=== PATIENT | female | born 1950 | race Caucasian/White ===

== ENCOUNTER 2018-03-31 10:32 | Emergency (ER) | payer BC ==
--- NOTE | 2018-03-31 10:48 | EDM.PDOC ---
ED HPI GENERAL MEDICAL PROBLEM - General Chief Complaint: Lower Extremity Injury/Pain Stated Complaint: LEFT KNEE PAIN Time Seen by Provider: 03/31/18 10:40 Source of Information: Reports: Patient History Limitations: Reports: No Limitations - History of Present Illness INITIAL COMMENTS - FREE TEXT/NARRATIVE: HISTORY AND PHYSICAL: History of present illness: Patient is a 67-year-old female who presents to the emergency room with complaints of left knee pain. She states approximately 3 weeks ago she fell landing on her knee which caused pain. Past 3 weeks she has been doing over the counter medication and supportive care measures which have not seemed to alleviate her discomfort. She has been able to ambulate Review of systems: As per history of present illness and below otherwise all systems reviewed and negative. Past medical history: As per history of present illness and as reviewed below otherwise noncontributory. Surgical history: As per history of present illness and as reviewed below otherwise noncontributory. Social history: No reported history of drug or alcohol abuse. Family history: As per history of present illness and as reviewed below otherwise noncontributory. Physical exam: General: HEENT: Atraumatic, normocephalic, pupils equal and reactive bilaterally, negative for conjunctival pallor or scleral icterus, mucous membranes moist, throat clear, neck supple, nontender, trachea midline. No drooling or trismus noted. No meningeal signs Lungs: Clear to auscultation, breath sounds equal bilaterally, chest nontender. Heart: S1S2, regular rate and rhythm without overt murmur Abdomen: Soft, nondistended, nontender. Negative for masses or hepatosplenomegaly. Negative for costovertebral tenderness. Pelvis: Stable nontender. Genitourinary: Deferred. Rectal: Deferred. Skin: Intact, warm, dry. No lesions or rashes noted. Extremities: Moves all extremities per self. negative for cords or calf pain. Neurovascular unremarkable. Neuro: Awake, alert, oriented. Cranial nerves II through XII unremarkable. Cerebellum unremarkable. Motor and sensory unremarkable throughout. Exam nonfocal. Notes: X-ray shows no acute abnormality, dislocation or fracture area and mild degenerative changes are noted without acute findings. We'll place patient in a knee immobilizer and provided with crutches. The limitations of x-ray through the emergency room. Encouraged her to follow-up with the orthopedic provider as she may need further imaging such as an MRI as there could be ligament or tendon involvement. She voices understanding and is agreeable to plan of care. She denies any further questions at this time. Diagnostics: Xray Therapeutics: Knee immobilizer, Crutches Impression: Knee Injury, Left Plan: 1. Rest, ice, and elevate the affected extremity. Wear the knee immobilizer and crutches until you follow up with orthopedics. 2. Voltaren as needed for pain. Do not take any additional NSAID's will taken this medication. 3. Follow up with orthopedics within the next few days. Return to the ED as needed as discussed. Definitive disposition and diagnosis as appropriate pending reevaluation and review of above. Duration: Week(s): Location: Reports: Lower Extremity, Left Left Knee Pain Score (Numeric/FACES): 10 - Related Data Allergies Allergy/AdvReac Type Severity Reaction Status Date / Time fentanyl Allergy Seizure Verified 03/31/18 10:52 haloperidol [From Haldol] Allergy seizures Verified 03/31/18 10:52 haloperidol lactate Allergy seizures Verified 03/31/18 10:52 [From Haldol] Home Meds: Home Meds Amitriptyline [Elavil] 75 mg PO BEDTIME 03/11/14 [History] ClonazePAM [KlonoPIN] 1 mg PO BID 03/11/14 [History] LORazepam 0.5 mg PO DAILY 03/11/14 [History] Propranolol [Inderal] 40 mg PO BID 03/11/14 [History] Venlafaxine [Effexor XR 24 Hr] 75 mg PO DAILY 03/11/14 [History] busPIRone [Buspar] 15 mg PO TID 03/11/14 [History] Past Medical History - Past Surgical History Other Cardiovascular Surgeries/Procedures: stent Social & Family History - Tobacco Use Smoking Status *Q: Never Smoker Used Tobacco, but Quit: Yes Month/Year Tobacco Last Used: when smoked...1 pack/ 2week period. Quit > 1 yr ago Second Hand Smoke Exposure: No - Alcohol Use Days Per Week of Alcohol Use: 0 - Recreational Drug Use Recreational Drug Use: No Drug Use in Last 12 Months: No Review of Systems - Review of Systems Review Of Systems: ROS reveals no pertinent complaints other than HPI. ED EXAM, GENERAL - Physical Exam Exam: See Below (See dictation) Course - Vital Signs Last Recorded V/S: Last Vital Signs Temp 96.6 F 03/31/18 10:47 Pulse 82 03/31/18 10:47 Resp 18 03/31/18 10:47 BP 102/58 L 03/31/18 10:47 Pulse Ox 93 L 03/31/18 10:47 Departure - Departure Time of Disposition: 11:30 Disposition: Home, Self-Care 01 Clinical Impression: Left knee injury Qualifiers: Encounter type: initial encounter Qualified Code(s): S89.92XA - Unspecified injury of left lower leg, initial encounter - Discharge Information Instructions: Knee Sprain, Adult, [id number]-pm-[facility] Referrals: PCP,None [Primary Care Provider] - Forms: ED Department Discharge Additional Instructions: The following information is given to patients seen in the emergency department who are being discharged to home. This information is to outline your options for follow-up care. We provide all patients seen in our emergency department with a follow-up referral. The need for follow-up, as well as the timing and circumstances, are variable depending upon the specifics of your emergency department visit. If you don't have a primary care physician on staff, we will provide you with a referral. We always advise you to contact your personal physician following an emergency department visit to inform them of the circumstance of the visit and for follow-up with them and/or the need for any referrals to a consulting specialist. The emergency department will also refer you to a specialist when appropriate. This referral assures that you have the opportunity for follow-up care with a specialist. All of these measure are taken in an effort to provide you with optimal care, which includes your follow-up. Under all circumstances we always encourage you to contact your private physician who remains a resource for coordinating your care. When calling for follow-up care, please make the office aware that this follow-up is from your recent emergency room visit. If for any reason you are refused follow-up, please contact the [facility] Emergency Department at and asked to speak to the emergency department charge nurse. [facility] Primary Care [address] [place] [id number] [facility] Specialty Care - Orthopedic Clinic Professional Building [address] [place] [address], [address] [place] [address] 1. Rest, ice, and elevate the affected extremity. Wear the knee immobilizer and crutches until you follow up with orthopedics. 2. May use the Voltaren as needed. Do not take any additional NSAID such as ibuprofen or Aleve while taking this medication. Use Tylenol for breakthrough pain. 3. Follow up with orthopedics within the next few days. Return to the ED as needed as discussed.
--- NOTE | 2018-03-31 11:24 | CR ---
EXAMINATION: Left knee HISTORY: Pain COMPARISON: None TECHNIQUE: 3 views FINDINGS: There is no acute osseous abnormality, dislocation, or fracture. Mild joint space narrowing within the medial compartment. No joint effusion or soft tissue swelling. Early osteophyte formation is noted. IMPRESSION: Mild degenerative changes without acute findings.
[2018-03-31] MEDS ORDERED: Ketorolac 60 MG/2 ML SDV IM ONE (11:58)
[2018-03-31 12:41] VITALS: BP 113/57
== END 2018-03-31 12:25 | disposition home or self-care (01) ==
LOC: MW.ED 10:32
DX: S89.92XA Unspecified injury of left lower leg, initial encounter (principal); Z88.8 Allergy status to other drugs, medicaments and biological substances; Z79.899 Other long term (current) drug therapy; Z87.891 Personal history of nicotine dependence; W19.XXXA Unspecified fall, initial encounter
CPT/HCPCS: 73562; 96372; 99283; J1885

== ENCOUNTER 2018-05-12 07:46 | Day surgery (SDC) | payer BC ==
[~2018-05-12 07:46] MED LIST: Lactated Ringers 1,000 ML IV SCH; Lidocaine 2% 5 ML SDV ONE; Midazolam 1 MG/ML 2 ML SDV ONE; Propofol 200 MG/20 ML SDV ONE; ceFAZolin/Dextrose,Iso-Osmotic 2 GM/50 ML Duplex Bag IV ONE; fentaNYL 250 MCG/5 ML SDV ONE
[2018-05-12] MEDS ORDERED: ceFAZolin 1 GM in Premix Bag 1 BAG IV SCH (08:00)
[2018-05-12] MEDS ORDERED: Acetaminophen/HYDROcodone 325-5 MG Tab PO PRN (08:00)
[2018-05-12] MEDS ORDERED: Lidocaine 1% 20 ML MDV ONE (08:28)
--- NOTE | 2018-05-12 09:14 | PCM.PREANE ---
Preanesthetic Assessment - Anesthesia/Transfusion/Family Hx Anesthesia History: Prior Anesthesia Without Reaction Family History of Anesthesia Reaction: No Transfusion History: No Prior Transfusion(s) Intubation History: Unknown - Review of Systems General: No Symptoms Pulmonary: No Symptoms Cardiovascular: No Symptoms Gastrointestinal: No Symptoms Neurological: No Symptoms Other: Reports: None - Physical Assessment Height: 1.59 m Weight: 68.039 kg ASA Class: 3 Mental Status: Alert & Oriented x3 Airway Class: Mallampati = 2 Dentition: Reports: Normal Dentition Thyro-Mental Finger Breadths: 3 Mouth Opening Finger Breadths: 3 ROM/Head Extension: Full Lungs: Clear to Auscultation, Normal Respiratory Effort Cardiovascular: Regular Rate, Regular Rhythm - Allergies Allergies/Adverse Reactions: Allergies Allergy/AdvReac Type Severity Reaction Status Date / Time fentanyl Allergy Seizure Verified 05/08/18 14:25 haloperidol [From Haldol] Allergy seizures Verified 05/08/18 14:25 haloperidol lactate Allergy seizures Verified 05/08/18 14:25 [From Haldol] - Blood Blood Available: No - Anesthesia Plan Pre-Op Medication Ordered: None - Acknowledgements Anesthesia Type Planned: General Anesthesia Pt an Appropriate Candidate for the Planned Anesthesia: Yes Alternatives and Risks of Anesthesia Discussed w Pt/Guardian: Yes Pt/Guardian Understands and Agrees with Anesthesia Plan: Yes PreAnesthesia Questionnaire HEENT History: Reports: Other (See Below) Other HEENT History: wears glasses Gastrointestinal History: Reports: GERD Genitourinary History: Reports: UTI, Recurrent Musculoskeletal History: Reports: Other (See Below) Other Musculoskeletal History: left knee pain (DJD) Neurological History: Reports: Cerebral Aneurysms, Migraines, Seizure, Other ( See Below) Other Neuro History: placement of coil for brain aneurysm Psychiatric History: Reports: Anxiety, Bipolar, Depression, OCD, Suicide Attempt - Infectious Disease History Infectious Disease History: Reports: Chicken Pox, Measles, Mumps - Past Surgical History Head Surgeries/Procedures: Reports: Other (See Below) (placement of multiple coils as treatment for intracranial aneurysm) HEENT Surgical History: Reports: Cataract Surgery, Tonsillectomy GI Surgical History: Reports: Appendectomy, Other (See Below) Other GI Surgeries/Procedures: hemorrhoidectomy Female Surgical History: Reports: Hysterectomy, Salpingo-Oophorectomy, Other (See Below) Other Female Surgeries/Procedures: cystocele repair, rectocele repair - SUBSTANCE USE Smoking Status *Q: Never Smoker Recreational Drug Use History: No - HOME MEDS Home Medications: Home Meds Amitriptyline [Elavil] 75 mg PO BEDTIME 03/11/14 [History] ClonazePAM [KlonoPIN] 1 mg PO BID 03/11/14 [History] LORazepam 0.5 mg PO BID 03/11/14 [History] Propranolol [Inderal] 40 mg PO BID 03/11/14 [History] Venlafaxine [Effexor XR 24 Hr] 75 mg PO DAILY 03/11/14 [History] busPIRone [Buspar] 15 mg PO TID 03/11/14 [History] Famotidine [Pepcid] 1 tab PO BEDTIME 05/08/18 [History] - CURRENT (IN HOUSE) MEDS Current Meds: Current Medications Hydrocodone Bitart/Acetaminophen ([place] 325-5 Mg) 1 - 2 tab PO Q4H PRN PRN Reason: Pain Cefazolin Sodium/Dextrose 1 gm (/ Premix) 50 mls @ 100 mls/hr IV ONCALL DAVID Lactated Ringer's (Ringers, Lactated) 1,000 mls @ 100 mls/hr IV ASDIRECTED DAVID Discontinued Medications Cefazolin Sodium/Dextrose (Ancef) Confirm Administered Dose 2 gm IV .STK-MED ONE Stop: 05/12/18 07:22 Fentanyl (Sublimaze) Confirm Administered Dose 250 mcg .ROUTE .STK-MED ONE Stop: 05/12/18 07:24 Lidocaine (Xylocaine-Mpf 2%) Confirm Administered Dose 10 ml .ROUTE .STK-MED ONE Stop: 05/12/18 07:23 Lidocaine HCl (Xylocaine 1%) Confirm Administered Dose 20 ml .ROUTE .STK-MED ONE Stop: 05/12/18 08:29 Midazolam HCl (Versed 1 Mg/Ml) Confirm Administered Dose 2 mg .ROUTE .STK-MED ONE Stop: 05/12/18 07:24 Propofol (Diprivan 20 Ml) Confirm Administered Dose 400 mg .ROUTE .STK-MED ONE Stop: 05/12/18 07:24
--- NOTE | 2018-05-12 10:40 | PCM.OPNOTE ---
- General Post-Op/Procedure Note Date of Surgery/Procedure: 05/12/18 Operative Procedure(s): L knee arthroscopy with PMM Post-Op Diagnosis: DJD L knee, L knee medial meniscus tear Anesthesia Technique: General LMA Primary Surgeon: Kathy Wood Checking Department Supervisor: Marbella Woody in mLs: 5 Condition: Good Free Text/Narrative:: tt=21 min #[id number]
[2018-05-12] MEDS ORDERED: fentaNYL 100 MCG/2 ML SDV IVPUSH PRN (10:47)
--- NOTE | 2018-05-12 11:19 | PCM.POSTAN ---
POST ANESTHESIA ASSESSMENT - MENTAL STATUS Mental Status: Alert, Oriented - RESPIRATORY Respiratory Status: Respiratory Rate WNL, Airway Patent, O2 Saturation Stable - CARDIOVASCULAR CV Status: Pulse Rate WNL, Blood Pressure Stable - GASTROINTESTINAL GI Status: No Symptoms - POST OP HYDRATION Hydration Status: Adequate & Stable
[2018-05-12 12:23] VITALS: BP 115/57
--- NOTE | 2018-05-12 14:02 | OR ---
SURGEON: Kathy Wood MD DATE OF PROCEDURE: 05/12/2018 PREOPERATIVE DIAGNOSIS: Left knee medial meniscus tear. POSTOPERATIVE DIAGNOSES: 1. Left knee medial meniscus tear. 2. Degenerative joint disease of left knee. PROCEDURE: Left knee arthroscopy with partial medial meniscectomy. [employer] LABORER: Marbella Woody RN. ANESTHESIA: General. ESTIMATED BLOOD LOSS: 5 mL. TOURNIQUET TIME: 21 minutes. COMPLICATIONS: None. DVT PROPHYLAXIS: Not indicated. IMPLANTS USED: None. BRIEF HISTORY: Lacie is a 67-year-old female, who has had complaint of progressive right knee pain. An MRI did show a tear of the medial meniscus. Due to her lack of response to conservative treatment, I did recommend surgical intervention. The risks and goals of procedure were discussed with the patient and were documented preoperatively. She agreed to proceed. PROCEDURE IN DETAIL: The patient was properly identified and brought to the operating room. She was transferred from the OR cart and placed on the operating table in supine position. General anesthesia was administered. After adequate anesthesia was obtained, a well-padded tourniquet was applied to the left lower extremity. The left lower extremity was then prepped in standard fashion using ChloraPrep solution. It was then sterilely draped. A time-out was performed to ensure correct site and procedure. Preoperative antibiotics were given. The surgical site had been marked preoperatively. An Esmarch was used to exsanguinate the left lower extremity and the tourniquet was inflated to 250 mmHg. A lateral portal arthrotomy was established. Blunt trocar and cannula were introduced into the suprapatellar pouch. Camera, inflow, and outflow were assembled. No significant synovitis was noted. The patellofemoral joint was visualized. 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 Grade 2 chondromalacia was noted diffusely along the patella. The patella appeared to track centrally. I then extended down the lateral and medial gutter. No loose bodies were identified. I then entered the medial compartment. A medial portal arthrotomy was established. She was found to have extensive degenerative fraying of the medial meniscus. Using a combination of biters and shaver, this was resected back to a stable remnant. She only had a thin rim of meniscus remaining along the posterior aspect. The medial femoral condyle showed diffuse grade 3 chondromalacia with similar findings along the medial tibial plateau. I then entered the notch. Both the ACL and PCL were visualized and probed and found to be intact. Finally, I entered the lateral compartment. The lateral meniscus showed degenerative fraying centrally. No tearing was noted. The meniscus was probed and found to be stable. She did have significant degenerative findings along the medial border of the lateral tibial plateau consistent with grade 3 to grade 4 chondromalacia. Diffuse grade 2 chondromalacia was noted along the lateral femoral condyle. Instruments were then removed from the knee. The portal sites were closed with 3-0 nylon. 1% Lidocaine was injected along the portal tracts. Xeroform gauze was placed over the wound and a bulky dressing was applied. The tourniquet was then deflated. She was awakened from her anesthetic and transferred back to the operating room cart. She was brought to recovery room in stable condition. All needle and sponge counts were correct. OSMAN / OLE /[id number]
== END 2018-05-12 12:15 | disposition home or self-care (01) ==
LOC: MW.SDS 07:46
PROVIDERS: ATTEND Orthopaedic Surgery
DX: S83.242A Other tear of medial meniscus, current injury, left knee, initial encounter (principal); M17.12 Unilateral primary osteoarthritis, left knee; M22.42 Chondromalacia patellae, left knee; K21.9 Gastro-esophageal reflux disease without esophagitis; G43.909 Migraine, unspecified, not intractable, without status migrainosus; R56.9 Unspecified convulsions; F41.9 Anxiety disorder, unspecified; F31.9 Bipolar disorder, unspecified; F42.9 Obsessive-compulsive disorder, unspecified; F17.210 Nicotine dependence, cigarettes, uncomplicated; Z91.5 Personal history of self-harm; Z79.899 Other long term (current) drug therapy; Z88.8 Allergy status to other drugs, medicaments and biological substances; W01.0XXA Fall on same level from slipping, tripping and stumbling without subsequent striking against object, initial encounter
CPT/HCPCS: 29881; A9270; J0690; J2250; J3010; J7120; 88304; J2704

== ENCOUNTER 2019-01-01 14:14 | Emergency (ER) | payer BC ==
--- NOTE | 2019-01-01 15:42 | EDM.PDOC ---
ED HPI GENERAL MEDICAL PROBLEM - General Chief Complaint: Back Pain or Injury Stated Complaint: FELL Time Seen by Provider: 01/01/19 14:16 Source of Information: Reports: Patient History Limitations: Reports: No Limitations - History of Present Illness INITIAL COMMENTS - FREE TEXT/NARRATIVE: HISTORY AND PHYSICAL: History of present illness: Patient is a 68-year-old female who presents to the emergency room with complaints of left gluteus pain. She states she slipped and fell on the ice at approximately 1:30 this afternoon landing on her buttocks. Since that time she has had a large firm area to the left gluteus with new bruising at the site. She denies any urinary or fecal involvement. States that she may have secondarily hit the back of her head but did not think she lost consciousness. She denies any visual change, headache, Review of systems: As per history of present illness and below otherwise all systems reviewed and negative. Past medical history: As per history of present illness and as reviewed below otherwise noncontributory. Surgical history: As per history of present illness and as reviewed below otherwise noncontributory. Social history: See social history for further information Family history: As per history of present illness and as reviewed below otherwise noncontributory. Physical exam: General: Well-developed and well-nourished 68-year-old female. Alert and oriented. Nontoxic appearing and in no acute distress. HEENT: Atraumatic, normocephalic, pupils equal and reactive bilaterally, negative for conjunctival pallor or scleral icterus, mucous membranes moist, TMs normal bilaterally, throat clear, neck supple, nontender, trachea midline. No drooling or trismus noted. No meningeal signs. No hot potato voice noted. Lungs: Clear to auscultation, breath sounds equal bilaterally, chest nontender. Heart: S1S2, regular rate and rhythm without overt murmur Abdomen: Soft, nondistended, nontender. Negative for masses or hepatosplenomegaly. Negative for costovertebral tenderness. Pelvis: Stable nontender. Genitourinary: Deferred. Rectal: Deferred. Skin: Baseball sized hematoma to left mid glute with new bruising. Intact, warm , dry. No lesions or rashes noted. Extremities: Atraumatic, negative for cords or calf pain. Neurovascular unremarkable. Neuro: Awake, alert, oriented. Cranial nerves II through XII unremarkable. Cerebellum unremarkable. Motor and sensory unremarkable throughout. Exam nonfocal. Notes: Potassium and BUN/creatinine are elevated. I did discuss with patient the findings. She would like to be discharged to home. I am going to do an EKG to make sure there are no abnormalities that would indicate she needs to stay. Dr Esparza reviewed the EKG and recommended that the patient have 1 dose of Kayexalate prior to being discharged. Patient voices understanding of these lab abnormalities and will follow up with her primary care provider in the next few days. Encouraged her to increase her oral fluids. We'll give her some indications for pain management as she does have the large hematoma to the left buttock. Signs and symptoms that would prompt her to return to the emergency room were reviewed and discussed. She voices understanding and is agreeable to plan of care. Denies any further questions or concerns at this time. Diagnostics: CT head, CT pelvis, CBC, BMP Therapeutics: IV fluids, Zofran, Morphine Prescription: Batchelor Impression: Hematoma, left buttock Hyperkalemia Head injury Plan: 1. Rest, ice to the area and avoid direct pressure when sitting. He may want to get a doughnut cut-out seat to alleviate the discomfort. 2. Tylenol and/or ibuprofen as needed for pain management. Batchelor for moderate to severe pain. Please reserve this medication for nighttime use. Medication may cause drowsiness a do not take it will driving her needing to be functioning outside of the house. 3. Please follow-up with your primary caregiver on the abnormal labs that we discussed. I would like you to be reevaluated in the next 1-2 days. Return to the ED as needed and as discussed. Definitive disposition and diagnosis as appropriate pending reevaluation and review of above. Right Upper Buttock Pain Score (Numeric/FACES): 10 - Related Data Allergies Allergy/AdvReac Type Severity Reaction Status Date / Time haloperidol [From Haldol] Allergy seizures Verified 01/01/19 14:31 haloperidol lactate Allergy seizures Verified 01/01/19 14:31 [From Haldol] Home Meds: Home Meds Amitriptyline [Elavil] 75 mg PO BEDTIME 03/11/14 [History] ClonazePAM [KlonoPIN] 1 mg PO BID 03/11/14 [History] LORazepam 0.5 mg PO BID 03/11/14 [History] Propranolol [Inderal] 40 mg PO BID 03/11/14 [History] Venlafaxine [Effexor XR] 75 mg PO DAILY 03/11/14 [History] busPIRone [Buspar] 15 mg PO TID 03/11/14 [History] Famotidine [Pepcid] 1 tab PO BEDTIME 05/08/18 [History] Acetaminophen/HYDROcodone [Batchelor 325-5 MG] 1 - 2 tab PO Q4H PRN #80 tablet 05/12 [Rx] Acetaminophen/HYDROcodone [Batchelor 325-5 MG] 1 dose PO Q4H PRN #15 tablet [Rx] Past Medical History HEENT History: Reports: Other (See Below) Other HEENT History: wears glasses Gastrointestinal History: Reports: GERD Genitourinary History: Reports: UTI, Recurrent Musculoskeletal History: Reports: Other (See Below) Other Musculoskeletal History: left knee pain (DJD) Neurological History: Reports: Cerebral Aneurysms, Migraines, Seizure, Other ( See Below) Other Neuro History: placement of coil for brain aneurysm Psychiatric History: Reports: Anxiety, Bipolar, Depression, OCD, Suicide Attempt - Infectious Disease History Infectious Disease History: Reports: Chicken Pox - Past Surgical History Head Surgeries/Procedures: Reports: Other (See Below) HEENT Surgical History: Reports: Cataract Surgery, Tonsillectomy GI Surgical History: Reports: Appendectomy, Other (See Below) Other GI Surgeries/Procedures: hemorrhoidectomy Female Surgical History: Reports: Hysterectomy, Salpingo-Oophorectomy, Other (See Below) Other Female Surgeries/Procedures: cystocele repair, rectocele repair Social & Family History - Family History Family Medical History: Noncontributory - Tobacco Use Smoking Status *Q: Never Smoker - Caffeine Use Caffeine Use: Reports: Coffee - Recreational Drug Use Recreational Drug Use: No ED ROS GENERAL - Review of Systems Review Of Systems: ROS reveals no pertinent complaints other than HPI. ED EXAM,LOWER BACK PAIN/INJURY - Physical Exam Exam: See Below (See dictation) Course - Vital Signs Last Recorded V/S: Last Vital Signs Temp 96.7 F 01/01/19 15:07 Pulse 94 01/01/19 15:07 Resp 18 01/01/19 15:07 BP 140/82 01/01/19 15:07 Pulse Ox 97 02/07/19 15:07 - Orders/Labs/Meds Orders: Active Orders 24 hr Category Date Time Status EKG Documentation Completion [RC] STAT Care 01/01/19 17:58 Active BASIC METABOLIC PANEL,BMP [CHEM] Stat Lab 01/01/19 14:34 Stop Req CBC WITH AUTO DIFF [HEME] Stat Lab 01/01/19 14:34 Stop Req Morphine Med 01/01/19 14:34 Once 4 mg IVPUSH ONETIME ONE Ondansetron [Zofran] Med 01/01/19 14:34 Once 4 mg IVPUSH ONETIME ONE Labs: Laboratory Tests 01/01/19 01/01/19 Range/Units 16:00 16:44 WBC 7.82 (4.0-11.0) K/uL RBC 4.38 (4.30-5.90) M/uL Hgb 13.6 (12.0-16.0) g/dL Hct 40.4 (36.0-46.0) % MCV 92.2 (80.0-98.0) fL MCH 31.1 (27.0-32.0) pg MCHC 33.7 (31.0-37.0) g/dL RDW Std Deviation 48.3 (28.0-62.0) fl RDW Coeff of Shabbir 14 (11.0-15.0) % Plt Count 301 (150-400) K/uL MPV 9.10 (7.40-12.00) fL Neut % (Auto) 71.8 (48.0-80.0) % Lymph % (Auto) 20.2 (16.0-40.0) % Weld % (Auto) 6.6 (0.0-15.0) % Eos % (Auto) 0.9 (0.0-7.0) % Baso % (Auto) 0.5 (0.0-1.5) % Neut # (Auto) 5.6 (1.4-5.7) K/uL Lymph # (Auto) 1.6 (0.6-2.4) K/uL Weld # (Auto) 0.5 (0.0-0.8) K/uL Eos # (Auto) 0.1 (0.0-0.7) K/uL Baso # (Auto) 0.0 (0.0-0.1) K/uL Nucleated RBC % 0.0 /100WBC Nucleated RBCs # 0 K/uL Sodium 143 (136-145) mmol/L Potassium 5.5 H (3.5-5.1) mmol/L Chloride 108 H (98-107) mmol/L Carbon Dioxide 26.4 (21.0-32.0) mmol/L BUN 23 H (7.0-18.0) mg/dL Creatinine 1.4 H (0.6-1.0) mg/dL Est Cr Clr Drug Dosing 32.70 mL/min Estimated GFR (MDRD) 37.6 ml/min Glucose 111 H (74-106) mg/dL Calcium 10.3 H (8.5-10.1) mg/dL Meds: Medications Discontinued Medications Generic Name Dose Route Start Last Admin Trade Name Freq PRN Reason Stop Dose Admin Sodium Chloride 1,000 mls @ 999 mls/hr 01/01/19 16:57 01/01/19 17:33 Normal Saline IV 01/01/19 17:57 999 mls/hr STAT ONE Administration Morphine Sulfate 4 mg 01/01/19 16:13 01/01/19 16:19 Morphine IVPUSH 01/01/19 16:14 4 mg ONETIME ONE Administration Ondansetron HCl 4 mg 01/01/19 16:13 01/01/19 16:19 Zofran IVPUSH 01/01/19 16:14 4 mg ONETIME ONE Administration Sodium Polystyrene Sulfonate 15 gm 01/01/19 18:01 Kayexalate PO 01/01/19 18:02 ONETIME ONE Departure - Departure Time of Disposition: 18:20 Disposition: Home, Self-Care 01 Clinical Impression: Hematoma, Hyperkalemia Head injury Qualifiers: Encounter type: initial encounter Qualified Code(s): S09.90XA - Unspecified injury of head, initial encounter - Discharge Information Prescriptions: Acetaminophen/HYDROcodone [Batchelor 325-5 MG] 1 dose PO Q4H PRN #15 tablet PRN Reason: Pain Instructions: Hyperkalemia, [id number], Head Injury, Adult, [id number], Hematoma, [id number] Referrals: PCP,None [Primary Care Provider] - Forms: ED Department Discharge Additional Instructions: The following information is given to patients seen in the emergency department who are being discharged to home. This information is to outline your options for follow-up care. We provide all patients seen in our emergency department with a follow-up referral. The need for follow-up, as well as the timing and circumstances, are variable depending upon the specifics of your emergency department visit. If you don't have a primary care physician on staff, we will provide you with a referral. We always advise you to contact your personal physician following an emergency department visit to inform them of the circumstance of the visit and for follow-up with them and/or the need for any referrals to a consulting specialist. The emergency department will also refer you to a specialist when appropriate. This referral assures that you have the opportunity for follow-up care with a specialist. All of these measure are taken in an effort to provide you with optimal care, which includes your follow-up. Under all circumstances we always encourage you to contact your private physician who remains a resource for coordinating your care. When calling for follow-up care, please make the office aware that this follow-up is from your recent emergency room visit. If for any reason you are refused follow-up, please contact the [facility] Emergency Department at and asked to speak to the emergency department charge nurse. [facility] [address] [place] [id number] [place] [address] 1. Rest, ice to the area and avoid direct pressure when sitting. He may want to get a doughnut cut-out seat to alleviate the discomfort. 2. Tylenol and/or ibuprofen as needed for pain management. Batchelor for moderate to severe pain. Please reserve this medication for nighttime use. Medication may cause drowsiness a do not take it will driving her needing to be functioning outside of the house. 3. Please follow-up with your primary caregiver on the abnormal labs that we discussed. I would like you to be reevaluated in the next 1-2 days. Return to the ED as needed and as discussed. - My Orders Last 24 Hours: My Active Orders 01/01/19 14:34 BASIC METABOLIC PANEL,BMP [CHEM] Stat CBC WITH AUTO DIFF [HEME] Stat Morphine 4 mg IVPUSH ONETIME ONE Ondansetron [Zofran] 4 mg IVPUSH ONETIME ONE 01/01/19 17:58 EKG Documentation Completion [RC] STAT - Assessment/Plan Last 24 Hours: My Active Orders 01/01/19 14:34 BASIC METABOLIC PANEL,BMP [CHEM] Stat CBC WITH AUTO DIFF [HEME] Stat Morphine 4 mg IVPUSH ONETIME ONE Ondansetron [Zofran] 4 mg IVPUSH ONETIME ONE 01/01/19 17:58 EKG Documentation Completion [RC] STAT
[2019-01-01] MEDS ORDERED: Morphine 4 MG/ML Syringe IVPUSH ONE (16:13)
[2019-01-01] MEDS ORDERED: Ondansetron 4 MG/2 ML SDV IVPUSH ONE (16:13)
[2019-01-01] MEDS ORDERED: Sodium Chloride 0.9% 1,000 ML IV ONE (16:57)
--- NOTE | 2019-01-01 17:52 | CT ---
INDICATION: Fall. TECHNIQUE: Noncontrast axial images through the pelvis with sagittal and coronal reconstructions. COMPARISON: None. FINDINGS: No pelvic or proximal femur fracture. Degenerative changes are noted in the lower lumbar spine and in both hip joints. In the subcutaneous tissues of the left side of the lower back and left upper gluteal region, there is stranding of the subcutaneous fat surrounding the a hyperdense fluid collection which measures 7.8 x 4.8 x 9.4 cm. This likely represents a hematoma. Incidental findings in the lower abdomen and pelvis include postsurgical changes from a hysterectomy and the distal aspect of a presumed shunt in the lower abdomen and pelvis. IMPRESSION: 1. No pelvic fracture. 2. Large contusion and hematoma involving the subcutaneous tissues of the left lower back and upper buttock. Please note that all CT scans at this facility use dose modulation, iterative reconstruction, and/or weight-based dosing when appropriate to reduce radiation dose to as low as reasonably achievable. Dictated by Satya Walls MD @ Jan 01 2019 6:45PM Signed by Dr. Satya Walls @ Jan 01 2019 6:52PM
[2019-01-01] MEDS ORDERED: Sodium Polystyrene Sulfonate 15 GM/60 ML Susp 60 ML Bot PO ONE (18:01)
[2019-01-01 18:35] VITALS: BP 105/79
== END 2019-01-01 18:35 | disposition home or self-care (01) ==
LOC: MW.ED 14:14
DX: S09.90XA Unspecified injury of head, initial encounter (principal); S30.0XXA Contusion of lower back and pelvis, initial encounter; E87.5 Hyperkalemia; Z79.899 Other long term (current) drug therapy; K21.9 Gastro-esophageal reflux disease without esophagitis; Z88.8 Allergy status to other drugs, medicaments and biological substances; W00.0XXA Fall on same level due to ice and snow, initial encounter
CPT/HCPCS: 36415; 72192; 80048; 85025; 93005; 96361; 96374; 96375; 99284; A9270; J2270; J2405; J7040

== ENCOUNTER 2020-03-12 12:41 | Emergency (ER) | payer SELFPAY ==
[2020-03-12 13:05] VITALS: BP 105/50; PULSE 89
--- NOTE | 2020-03-12 13:18 | EDM.PDOC ---
ED HPI GENERAL MEDICAL PROBLEM - General Chief Complaint: Genitourinary Problem Stated Complaint: UTI Time Seen by Provider: 03/12/20 12:47 Source of Information: Reports: Patient History Limitations: Reports: No Limitations - History of Present Illness INITIAL COMMENTS - FREE TEXT/NARRATIVE: 69-year-old female with history of UTI presents with dysuria and urgency. She states she has been having symptoms for about a month but symptoms worsen over the last few days. She has been taking double dose of Azo with no relief. She denies fever, chills, nausea, vomiting, abdominal pain, back pain, vaginal bleeding. She states this feels like her typical urinary tract infection. ROS: A 10-point review of systems, other than pertinent positives and negatives as stated per HPI, is otherwise negative PHYSICAL EXAM General: AOx4, GCS = 15, No distress HEENT: dry mucous membrane Neck: supple, no meningismus, no Kernig or Brudzinski Cardiac: S1S2 RRR Respiratory: CTAB, no crackles or rales, no wheezing Abdomen: Soft, nontender, no rebound or guarding, nondistended, no pulsatile mass. Back: nontender, no CVAT Musculoskeletal: NVI distally, no deformity Neuro: No focal deficits MEDICAL DECISION MAKING: I reviewed the patients past medical records, lab and radiographic findings. I discussed the case with family members. My differential diagnosis included: UTI, cystitis, pyelonephritis. Patient is well -appearing with normal vital signs and nontender exam, she had no CVA tenderness. I do not suspect need for imaging study. Vaginal Pain Score (Numeric/FACES): 10 - Related Data Allergies Allergy/AdvReac Type Severity Reaction Status Date / Time haloperidol [From Haldol] Allergy seizures Verified 03/12/20 13:05 haloperidol lactate Allergy seizures Verified 03/12/20 13:05 [From Haldol] Home Meds: Home Meds cephALEXin [Keflex] 500 mg PO Q8H #21 cap 03/12/20 [Rx] Past Medical History HEENT History: Reports: Cataract, Other (See Below) Other HEENT History: wears glasses Cardiovascular History: Reports: None Respiratory History: Reports: None Gastrointestinal History: Reports: GERD Genitourinary History: Reports: UTI, Recurrent MED AIDE History: Reports: Musculoskeletal History: Reports: Other (See Below) Other Musculoskeletal History: left knee pain (DJD) Neurological History: Reports: Cerebral Aneurysms, Migraines, Seizure, Other ( See Below) Other Neuro History: placement of coil for brain aneurysm Psychiatric History: Reports: Anxiety, Bipolar, Depression, OCD, Suicide Attempt Endocrine/Metabolic History: Reports: None Hematologic History: Reports: None Immunologic History: Reports: None Oncologic (Cancer) History: Reports: None Dermatologic History: Reports: None - Infectious Disease History Infectious Disease History: Reports: None - Past Surgical History Head Surgeries/Procedures: Reports: Other (See Below) HEENT Surgical History: Reports: Cataract Surgery, Tonsillectomy GI Surgical History: Reports: Appendectomy, Other (See Below) Other GI Surgeries/Procedures: hemorrhoidectomy Female Surgical History: Reports: Hysterectomy, Salpingo-Oophorectomy, Other (See Below) Other Female Surgeries/Procedures: cystocele repair, rectocele repair Social & Family History - Family History Family Medical History: Noncontributory - Tobacco Use Smoking Status *Q: Never Smoker - Caffeine Use Caffeine Use: Reports: Coffee - Recreational Drug Use Recreational Drug Use: No ED ROS GENERAL - Review of Systems Review Of Systems: See Below (see dictation) ED EXAM, RENAL/ - Physical Exam Exam: See Below (see dictation) Course - Vital Signs Last Recorded V/S: Last Vital Signs Temp 97.5 F 03/12/20 13:02 Pulse 89 03/12/20 13:02 Resp 18 03/12/20 13:02 BP 105/50 L 03/12/20 13:02 Pulse Ox 94 L 03/12/20 13:02 - Orders/Labs/Meds Labs: Laboratory Tests 03/12/20 Range/Units 13:00 Urine Color ORANGE Urine Appearance SLT CLOUDY Urine pH 6.5 (5.0-8.0) Ur Specific Mcleod 1.020 (1.001-1.035) Urine Protein >=300 H (NEGATIVE) mg/dL Urine Glucose (UA) 250 H (NEGATIVE) mg/dL Urine Ketones 15 H (NEGATIVE) mg/dL Urine Occult Blood TRACE-INTACT H (NEGATIVE) Urine Nitrite POSITIVE H (NEGATIVE) Urine Bilirubin MODERATE H (NEGATIVE) Urine Ictotest NEGATIVE Urine Urobilinogen >=8.0 H (<2.0) EU/dL Ur Leukocyte Esterase MODERATE H (NEGATIVE) U Hyaline Cast (Auto) 3-5 (0-2/LPF) Urine RBC 0-4 (0-2/HPF) Urine WBC 40-50 (0-5/HPF) Ur Epithelial Cells FEW (NONE-FEW) Urine Bacteria 1+ H (NEGATIVE) Urinalysis Comment - Re-Assessments/Exams Free Text/Narrative Re-Assessment/Exam: 03/12/20 13:3 After treatments and a prolonged observation period in the ER, the patient improved clinically and is stable for discharge. I performed a repeat examination and the patient has not demonstrated any new abnormal findings. Patient exhibits normal vital signs and has exhibited a normal gait. I advised the patient to return to the ER for reevaluation if symptoms worsened, and to follow up with their PCP within 2-3 days. Departure - Departure Time of Disposition: 13:33 Disposition: Home, Self-Care 01 Condition: Good Clinical Impression: UTI, Urinary tract infectious disease - Discharge Information Prescriptions: cephALEXin [Keflex] 500 mg PO Q8H #21 cap Instructions: Urinary Tract Infection, Adult, Antibiotic Medicine, Adult Referrals: PCP,None [Primary Care Provider] - Forms: ED Department Discharge Additional Instructions: The following information is given to patients seen in the emergency department who are being discharged to home. This information is to outline your options for follow-up care. We provide all patients seen in our emergency department with a follow-up referral. The need for follow-up, as well as the timing and circumstances, are variable depending upon the specifics of your emergency department visit. If you don't have a primary care physician on staff, we will provide you with a referral. We always advise you to contact your personal physician following an emergency department visit to inform them of the circumstance of the visit and for follow-up with them and/or the need for any referrals to a consulting specialist. The emergency department will also refer you to a specialist when appropriate. This referral assures that you have the opportunity for follow-up care with a specialist. All of these measure are taken in an effort to provide you with optimal care, which includes your follow-up. Under all circumstances we always encourage you to contact your private physician who remains a resource for coordinating your care. When calling for follow-up care, please make the office aware that this follow-up is from your recent emergency room visit. If for any reason you are refused follow-up, please contact the [facility] Emergency Department at and asked to speak to the emergency department charge nurse. Sepsis Event Note - Evaluation Sepsis Screening Result: No Definite Risk - Focused Exam Vital Signs: Vital Signs Temp Pulse Resp BP Pulse Ox 03/12/20 13:02 97.5 F 89 18 105/50 L 94 L Date Exam was Performed: 03/12/20 Time Exam was Performed: 13:33
== END 2020-03-12 13:59 | disposition home or self-care (01) ==
LOC: MW.ED 12:41
DX: N39.0 Urinary tract infection, site not specified (principal); Z88.8 Allergy status to other drugs, medicaments and biological substances
CPT/HCPCS: 81001; 99283

== ENCOUNTER 2021-08-24 10:38 | Inpatient (IN) | payer BC ==
[2021-08-24] MEDS ORDERED: Sodium Chloride 0.9% 1,000 ML IV ONE ×2 (11:08→12:24)
--- NOTE | 2021-08-24 12:07 | CR ---
INDICATION: Fall TECHNIQUE: Single view pelvis COMPARISONS: None available. FINDINGS: Femoral heads are well-seated in the acetabula. There is no displaced fracture, dislocation or acute osseous abnormality. There is moderate degenerative change of the left greater than right hips without evidence of acute osseous abnormality. The soft tissues are unremarkable. IMPRESSION: Moderate degenerative changes of the left greater than right hips without evidence of acute osseous abnormality. Dictated by Elio Araujo MD @ 08/24/2021 12:05:49 PM (Electronically Signed)
[2021-08-24 12:09] LABS: BLOOD UREA NITROGEN,BUN 59 mg/dL (7.0-18.0); CARBON DIOXIDE,CO2 15.2 mmol/L (21.0-32.0); CHLORIDE,CL 109 mmol/L (98-107); GLUCOSE RANDOM 106 mg/dL (74-106); LIPASE 304 U/L (73-393); POTASSIUM,K 4.5 mmol/L (3.5-5.1); SODIUM,NA 138 mmol/L (136-145)
--- NOTE | 2021-08-24 12:09 | CR ---
Indication: Fall Comparison: None available. Technique: Single AP view chest Findings: There is hyperinflation and chronic interstitial change. There is no focal consolidation, effusion, or pneumothorax. The cardiomediastinal silhouette is within normal limits. The bony thorax is grossly intact. Impression: No acute cardiopulmonary abnormality. Dictated by Elio Araujo MD @ 08/24/2021 12:07:02 PM (Electronically Signed)
[2021-08-24 12:26] LABS: CORONAVIRUS COVID-19 NAA NEGATIVE (NEGATIVE); INFLUENZA A NAA NEGATIVE (NEGATIVE); INFLUENZA B NAA NEGATIVE (NEGATIVE); RESPIRATORY SYNCYTIAL VIR NAA NEGATIVE (NEGATIVE)
--- NOTE | 2021-08-24 12:30 | CT ---
INDICATION: Fall with head injury TECHNIQUE: Head CT without contrast. COMPARISON: None. FINDINGS: : Brain parenchyma: Right transfrontal intraventricular catheter tip terminates in the roof of the 3rd ventricle. Bifrontal encephalomalacia. The ventricles are slit-like. 8 mm metallic density in the right cerebellum. No sign of mass, hemorrhage, or midline shift. Skull base and calvarium: The visualized paranasal sinuses and mastoid air cells demonstrate no acute or significant findings. The visualized orbits are grossly unremarkable. No skull fractures. There is intracranial atherosclerosis. IMPRESSION: 1. No acute findings. 2. Right transfrontal intraventricular catheter tip terminates in the roof of the 3rd ventricle. The ventricles are slit-like in size. 3. Metallic density in the right cerebellum likely representing embolization coils. Correlate with clinical history. 4. Bifrontal encephalomalacia. Please note that all CT scans at this facility use dose modulation, iterative reconstruction, and/or weight-based dosing when appropriate to reduce radiation dose to as low as reasonably achievable. Dictated by Yady Salas MD @ 08/24/2021 12:28:15 PM (Electronically Signed)
[2021-08-24] MEDS ORDERED: Piperacillin/Tazobactam 3.375 GM in Sodium Chloride 0.9% 50 ML IV ONE (12:49)
--- NOTE | 2021-08-24 13:12 | CT ---
INDICATION: Leukocytosis with abdominal pain. TECHNIQUE: CT of the abdomen and pelvis with 75 cc Isovue 370 IV contrast. Coronal and sagittal reconstructions. COMPARISON: CT of the abdomen and pelvis 10/08/2014. FINDINGS: Mild diffuse hepatic steatosis. Single tiny low-attenuation lesion in the inferior right hepatic lobe which is likely benign (series 201, image 49). The gallbladder is distended without radiopaque stones or evidence of inflammation. No biliary dilation. The spleen, pancreas, and right adrenal gland are negative. Splenule. Stable small left adrenal nodule which most likely represents a benign adenoma. There is also stable mild nonspecific thickening of the left adrenal gland. Hepatic and portal veins are patent. Moderate left renal cortical atrophy similar to prior exam. Bilateral renal cysts. No hydronephrosis or ureteral dilation. No obstructing urinary calculi. Small amount of air in the bladder. Hysterectomy. There is a 1.8 cm cystic lesion in the right adnexa (series 2, image 139). No abnormality in the left adnexa. Moderate hiatal hernia which has increased in size since prior exam. No bowel dilation. There is wall thickening of the transverse and descending colon compatible with a nonspecific colitis. No pneumatosis. No obvious vascular occlusion identified. The appendix is not identified. No intraperitoneal free air or fluid. Ventriculoperitoneal shunt coursing within the right anterior abdominal wall with tip in the posterior pelvis. No lymphadenopathy. Calcified subcutaneous granulomas in the buttocks bilaterally. Degenerative changes of the spine. Stable atelectasis or scarring in the medial right middle lobe. Minimal left basilar atelectasis. The lung bases are otherwise clear. Mild elevation of the right hemidiaphragm. IMPRESSION: 1. Wall thickening of the transverse and descending colon compatible with a nonspecific colitis. No pneumatosis or obvious vascular occlusion identified to suggest ischemia. 2. Distended gallbladder of uncertain etiology. No radiopaque stones or evidence of gallbladder inflammation. No biliary dilation. Consider further evaluation with ultrasound. 3. Mild diffuse hepatic steatosis. 4. Moderate hiatal hernia which has increased in size since prior exam. 5. 1.8 cm right adnexal cystic lesion. This could be further evaluated with pelvic ultrasound. Please note that all CT scans at this facility use dose modulation, iterative reconstruction, and/or weight-based dosing when appropriate to reduce radiation dose to as low as reasonably achievable. Dictated by Margaret Mina MD @ 08/24/2021 1:10:25 PM (Electronically Signed)
[2021-08-24] MEDS ORDERED: Iopamidol 755 MG/ML 500 ML Multipack Bottle IVPUSH STA (13:18)
[2021-08-24] MEDS ORDERED: Acetaminophen 500 MG Tab PO ONE (13:22)
[2021-08-24] MEDS ORDERED: Caffeine Citrated (for neonates) 60 MG/3 ML PO ONE ×2 (13:33→13:45)
[2021-08-24] MEDS ORDERED: Lactated Ringers 1,000 ML IV ONE (15:12)
[2021-08-24] MEDS ORDERED: Ondansetron 4 MG/2 ML SDV IVPUSH PRN (15:12)
[2021-08-24] MEDS ORDERED: Pantoprazole 40 MG Vial IV SCH (15:12)
--- NOTE | 2021-08-24 15:15 | EDM.PDOC ---
ED HPI GENERAL MEDICAL PROBLEM - General Chief Complaint: General Stated Complaint: WEAKNESS Time Seen by Provider: 08/24/21 10:40 Source of Information: Reports: Patient History Limitations: Reports: No Limitations - History of Present Illness INITIAL COMMENTS - FREE TEXT/NARRATIVE: HISTORY AND PHYSICAL: History of present illness: Patient is a 70-year-old female who presents emergency room today with her for concern of generalized weakness, fatigue, diarrhea, and lower abdominal cramping x2 to 3 days. Patient states that she has had too many numerous episodes of watery diarrhea to count and states that she does feel weak and dehydrated. Patient states that she has been having a hard time with ambulation due to weakness and states that she has fallen several times but denies any injuries. Patient states that she believes she has hit her head but cannot specify any specific fall. Patient states that she does have a history of ruptured cerebral aneurysm in 2000 and does have a shunt in her head secondary to this. Patient states she does have baseline headaches as a result of this and states that she does have a headache today but this is per her base line. Patient states she would typically use some sort of caffeine medication to help with this. Patient states that she has had a decrease in appetite has not been able to drink enough water to keep up with her diarrhea. Patient notes that may be some of her stool was blood-tinged but denies any bacilio blood, or melena. Patient denies fever, chills, chest pain, shortness of breath, or cough. Denies neck stiff ness, change in vision, syncope, or near syncope. Denies nausea, vomiting, or dysuria. Has not noted any blood in urine. Review of systems: As per history of present illness and below otherwise all systems reviewed and negative. Past medical history: As per history of present illness and as reviewed below otherwise noncontributory. Surgical history: As per history of present illness and as reviewed below otherwise noncontributory. Social history: See social history for further information Family history: As per history of present illness and as reviewed below otherwise noncontributory. Physical exam: General: Patient is alert, oriented, and in no acute distress. Patient laying comfortably on exam table. Patient's blood pressure softer at 98/53 with a MAP of 68, otherwise vitally stable and reviewed by me. HEENT: Atraumatic, normocephalic, pupils equal and reactive bilaterally, negative for conjunctival pallor or scleral icterus, mucous membranes severely dry, throat clear, neck supple, nontender, trachea midline. No drooling or trismus noted. No meningeal signs. No hot potato voice noted. Lungs: Clear to auscultation, breath sounds equal bilaterally, chest nontender. Heart: S1S2, regular rate and rhythm without overt murmur Abdomen: Soft, nondistended, mild lower abdominal tenderness without guarding, negative rebound/lazaro. Negative for masses or hepatosplenomegaly. Negative for costovertebral tenderness. Pelvis: Stable nontender. Genitourinary: Deferred. Rectal: Worm Picker at bedside Rebeca Hood RN. No obvious hemorrhoids, masses, lesions, noted. Rectal tone intact. Hemoccult is positive without any bacilio blood or melena Skin: Intact, warm, dry. No lesions or rashes noted. Extremities: Atraumatic, negative for cords or calf pain. Neurovascular unremarkable. Neuro: Awake, alert, oriented. Cranial nerves II through XII unremarkable. Cerebellum unremarkable. Motor and sensory unremarkable throughout. Exam nonfocal. Notes: Patient is a 70-year-old female who presents emergency room today with concern of generalized weakness/fatigue, increase in falls, multiple episodes of watery diarrhea, lower abdominal cramping x2 to 3 days. Upon arrival to the ED, patient's blood pressures are soft at about 98/53 with map of 65-70, otherwise vitally stable on exam. Patient does have dry mucous membranes and Hemoccult positive on exam without bacilio blood / melena. Patient's lower abdomen is mildly tender without guarding and rebound/Lazaro sign are negative. Will establish IV access, initiate fluid bolus, and obtain lab work. We will also obtain abdominal pelvic CT scan. We will also perform head CT, 1 view pelvis, chest x-ray as patient has had multiple falls in the past several days. CBC shows a leukocytosis at 13.13 (lactate within normal limits). Patient is anemic with red blood cells of 3.43, hemoglobin 9.6, and hematocrit 29. Otherwise moderate consistency unremarkable. CMP does show bicarb decreased at 15.2 with a new elevation of creatinine at 4.1 and BUN of 59 suggestive of acute kidney injury. Otherwise, mild derangements of CMP unremarkable. Lipase within normal limits. Troponin negative. Influenza, RSV, COVID-19 negative. CXR shows acute cardiopulmonary finding. Head without contrast shows no acute findings. Right transfrontal intraventricular catheter tip terminates in the roof of the third ventricle. The ventricles are slitlike in size. Metallic density in the right cerebellum likely representing embolism coils. Bifrontal encephalomalacia. Pelvic x-ray shows moderate degenerative changes of the left greater than right hip without evidence of acute osseous abnormality. Abdominal pelvic CT scan shows wall thickening of the transverse and descending colon compatible with nonspecific colitis. No pneumatosis or obvious vascular occlusion identified to suggest ischemia. Distended gallbladder of uncertain etiology. No radiopaque stones or evidence of gallbladder inflammation. No biliary dilation. Mild diffuse hepatic steatosis. Moderate hiatal hernia which is increased in size from prior. 1.8 cm right adnexal cystic lesion. This can be further evaluated with pelvic ultrasound. All incidental findings today of imaging today discussed with patient the importance to have this followed up at a later date with her primary care provider. I did call and speak to the hospitalist on-call, Dr. Pena, and thoroughly discussed patient's case. Will admit inpatient to Dr. Lowery on telemetry. On reevaluation of patient, she consistently has soft blood pressures in the emergency room today but states that she feels much improved with therapeutics. Patient transferred to the floor in stable condition to Dr. Pena's care. Voices understanding and is agreeable to plan of care. Denies any further questions or concerns at this time. Diagnostics: CBC, CMP, Lipase, influenza, RSV, COVID-19, stool studies, lactate, blood cultures x2, head CT, 1 view chest x-ray, pelvic x-ray 1 view, abdominal pelvic CT scan with contrast, RUQ US Therapeutics: NS, Zosyn, Vancomycin, Tylenol, Impression: Colitis Sepsis Hypovolemia/dehydration with acute kidney injury Plan: Admit to inpatient to Dr. Pena on telemetry Definitive disposition and diagnosis as appropriate pending reevaluation and review of above. - Related Data Allergies Allergy/AdvReac Type Severity Reaction Status Date / Time haloperidol [From Haldol] Allergy seizures Verified 08/24/21 16:42 haloperidol lactate Allergy seizures Verified 08/24/21 16:42 [From Haldol] Home Meds: Home Meds Amitriptyline HCl 75 mg PO BEDTIME 08/24/21 [History] ClonazePAM [KlonoPIN] 1 mg PO BEDTIME 08/24/21 [History] DULoxetine [Cymbalta] 30 mg PO DAILY 08/24/21 [History] LORazepam [Ativan] 0.5 mg PO TID 08/24/21 [History] Oxymetazoline HCl [Afrin] 2 spray NS BEDTIME 08/24/21 [History] Propranolol [Inderal] 40 mg PO BID 08/24/21 [History] busPIRone [Buspar] 15 mg PO TID 08/24/21 [History] traZODone 100 mg PO BEDTIME PRN 08/24/21 [History] Past Medical History HEENT History: Reports: Cataract, Other (See Below) Other HEENT History: wears glasses Cardiovascular History: Reports: None Respiratory History: Reports: None Gastrointestinal History: Reports: GERD Genitourinary History: Reports: UTI, 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 History: Reports: Musculoskeletal History: Reports: Other (See Below) Other Musculoskeletal History: left knee pain (DJD) Neurological History: Reports: Cerebral Aneurysms, Migraines, Seizure, Other (See Below) Other Neuro History: placement of coil for brain aneurysm Psychiatric History: Reports: Anxiety, Bipolar, Depression, OCD, Suicide Attempt Endocrine/Metabolic History: Reports: None Hematologic History: Reports: None Immunologic History: Reports: None Oncologic (Cancer) History: Reports: None Dermatologic History: Reports: None - Infectious Disease History Infectious Disease History: Reports: None - Past Surgical History Head Surgeries/Procedures: Reports: Other (See Below) HEENT Surgical History: Reports: Cataract Surgery, Tonsillectomy GI Surgical History: Reports: Appendectomy, Other (See Below) Other GI Surgeries/Procedures: hemorrhoidectomy Female Surgical History: Reports: Hysterectomy, Salpingo-Oophorectomy, Other (See Below) Other Female Surgeries/Procedures: cystocele repair, rectocele repair Social & Family History - Family History Family Medical History: No Pertinent Family History - Tobacco Use Tobacco Use Status *Q: Never Tobacco User Second Hand Smoke Exposure: No - Caffeine Use Caffeine Use: Reports: None - Recreational Drug Use Recreational Drug Use: No ED ROS GENERAL - Review of Systems Review Of Systems: Comprehensive ROS is negative, except as noted in HPI. ED EXAM, GENERAL - Physical Exam Exam: See Below (see dictation) Course - Vital Signs Last Recorded V/S: Last Vital Signs Temp 96.3 F L 08/24/21 16:39 Pulse 85 08/24/21 16:39 Resp 16 08/24/21 16:39 BP 132/74 08/24/21 16:39 Pulse Ox 97 08/24/21 16:39 - Orders/Labs/Meds Orders: Active Orders 24 hr Category Date Time Status Cardiac Monitoring [RC] Q8H Care 08/24/21 11:08 Active C DIFFICILE AG/TOXIN W/REFLEX [RM] Stat Lab 08/24/21 11:09 Ordered CULTURE BLOOD [BC] Stat Lab 08/24/21 11:20 Results CULTURE BLOOD [BC] Stat Lab 08/24/21 12:13 Results OVA & PARASITES BY IMMUNOASSAY [MREF] Stat Lab 08/24/21 11:09 Ordered STOOL CULTURE/SHIGA TOXIN [MREF] Stat Lab 08/24/21 11:09 Ordered Blood Culture x2 Reflex Set [OM.PC] Stat Oth 08/24/21 11:47 Ordered Medication Orders Acetaminophen (Acetaminophen 325 Mg Tab) 650 mg PO Q4H PRN PRN Reason: Pain (Mild 1-3)/fever Buspirone HCl (Buspirone 5 Mg Tab) 15 mg PO TID [facility] Last Admin: 08/24/21 21:09 Dose: 15 mg Documented by: Admin: 08/24/21 21:09 Dose: Not Given Documented by: HAKAN Duloxetine HCl (Duloxetine 30 Mg Cap) 30 mg PO DAILY [facility] Lactated Ringer's (Ringers, Lactated) 1,000 mls @ 125 mls/hr IV ASDIRECTED [facility] Last Admin: 08/24/21 21:25 Dose: 125 mls/hr Documented by: HAKAN Pantoprazole Sodium 40 mg/ (Sodium Chloride) 10 mls @ 300 mls/hr IV Q12H [facility] Last Admin: 08/24/21 18:12 Dose: 300 mls/hr Documented by: DAWOOD Piperacillin Sod/Tazobactam (Sod 4.5 gm/ Sodium Chloride) 100 mls @ 200 mls/hr IV Q12H [facility] Last Admin: 08/24/21 18:10 Dose: 200 mls/hr Documented by: DAWOOD Lorazepam (Lorazepam 0.5 Mg Tab) 0.5 mg PO TID [facility] Last Admin: 08/24/21 21:10 Dose: 0.5 mg Documented by: HAKAN Ondansetron HCl (Ondansetron 4 Mg/2 Ml Sdv) 4 mg IVPUSH Q4H PRN PRN Reason: Nausea/Vomiting Propranolol HCl (Propranolol 20 Mg Tab) 40 mg PO BID DAVID Trazodone HCl (Trazodone 50 Mg Tab) 100 mg PO BEDTIME PRN PRN Reason: Sleep Last Admin: 08/24/21 21:10 Dose: 100 mg Documented by: HAKAN Labs: Laboratory Tests 08/24/21 08/24/21 08/24/21 Range/Units 11:01 11:15 11:15 WBC 13.13 H (4.0-11.0) K/uL RBC 3.43 L (4.30-5.90) M/uL Hgb 9.6 L (12.0-16.0) g/dL Hct 29.0 L (36.0-46.0) % MCV 84.5 (80.0-98.0) fL MCH 28.0 (27.0-32.0) pg MCHC 33.1 (31.0-37.0) g/dL RDW Std Deviation 61.4 (28.0-62.0) fl RDW Coeff of Shabbir 20 H (11.0-15.0) % Plt Count 237 (150-400) K/uL MPV 9.60 (7.40-12.00) fL Neut % (Auto) 87.4 H (48.0-80.0) % Lymph % (Auto) 4.7 L (16.0-40.0) % [place] % (Auto) 7.7 (0.0-15.0) % Eos % (Auto) 0.1 (0.0-7.0) % Baso % (Auto) 0.1 (0.0-1.5) % Neut # (Auto) 11.5 H (1.4-5.7) K/uL Lymph # (Auto) 0.6 (0.6-2.4) K/uL [place] # (Auto) 1.0 H (0.0-0.8) K/uL Eos # (Auto) 0.0 (0.0-0.7) K/uL Baso # (Auto) 0.0 (0.0-0.1) K/uL Nucleated RBC % 0.0 /100WBC Nucleated RBCs # 0 K/uL Sodium 138 (136-145) mmol/L Potassium 4.5 (3.5-5.1) mmol/L Chloride 109 H (98-107) mmol/L Carbon Dioxide 15.2 L (21.0-32.0) mmol/L BUN 59 H (7.0-18.0) mg/dL Creatinine 4.1 H (0.6-1.0) mg/dL Est Cr Clr Drug Dosing 10.86 mL/min Estimated GFR (MDRD) 10.8 ml/min Glucose 106 (74-106) mg/dL Lactic Acid (0.4-2.0) mmol/L Calcium 11.7 H (8.5-10.1) mg/dL Total Bilirubin 0.3 (0.2-1.0) mg/dL AST 16 (15-37) IU/L ALT 14 (14-63) IU/L Alkaline Phosphatase 95 (46-116) U/L Troponin I < 0.050 (0.000-0.056) ng/mL Total Protein 6.0 L (6.4-8.2) g/dL Albumin 2.8 L (3.4-5.0) g/dL Globulin 3.2 (2.6-4.0) g/dL Albumin/Globulin Ratio 0.9 (0.9-1.6) Lipase 304 (73-393) U/L Influenza Type A RNA NEGATIVE (NEGATIVE) RSV RNA (INAAT) NEGATIVE (NEGATIVE) Influenza Type B RNA NEGATIVE (NEGATIVE) SARS-CoV-2 RNA ([place]) NEGATIVE (NEGATIVE) Blood Type Antibody Screen 08/24/21 08/24/21 08/24/21 Range/Units 11:20 11:21 13:00 WBC (4.0-11.0) K/uL RBC (4.30-5.90) M/uL Hgb 8.6 L (12.0-16.0) g/dL Hct 25.8 L (36.0-46.0) % MCV (80.0-98.0) fL MCH (27.0-32.0) pg MCHC (31.0-37.0) g/dL RDW Std Deviation (28.0-62.0) fl RDW Coeff of Shabbir (11.0-15.0) % Plt Count (150-400) K/uL MPV (7.40-12.00) fL Neut % (Auto) (48.0-80.0) % Lymph % (Auto) (16.0-40.0) % [place] % (Auto) (0.0-15.0) % Eos % (Auto) (0.0-7.0) % Baso % (Auto) (0.0-1.5) % Neut # (Auto) (1.4-5.7) K/uL Lymph # (Auto) (0.6-2.4) K/uL [place] # (Auto) (0.0-0.8) K/uL Eos # (Auto) (0.0-0.7) K/uL Baso # (Auto) (0.0-0.1) K/uL Nucleated RBC % /100WBC Nucleated RBCs # K/uL Sodium (136-145) mmol/L Potassium (3.5-5.1) mmol/L Chloride (98-107) mmol/L Carbon Dioxide (21.0-32.0) mmol/L BUN (7.0-18.0) mg/dL Creatinine (0.6-1.0) mg/dL Est Cr Clr Drug Dosing mL/min Estimated GFR (MDRD) ml/min Glucose (74-106) mg/dL Lactic Acid 1.2 (0.4-2.0) mmol/L Calcium (8.5-10.1) mg/dL Total Bilirubin (0.2-1.0) mg/dL AST (15-37) IU/L ALT (14-63) IU/L Alkaline Phosphatase (46-116) U/L Troponin I (0.000-0.056) ng/mL Total Protein (6.4-8.2) g/dL Albumin (3.4-5.0) g/dL Globulin (2.6-4.0) g/dL Albumin/Globulin Ratio (0.9-1.6) Lipase (73-393) U/L Influenza Type A RNA (NEGATIVE) RSV RNA (INAAT) (NEGATIVE) Influenza Type B RNA (NEGATIVE) SARS-CoV-2 RNA ([place]) (NEGATIVE) Blood Type O POSITIVE Antibody Screen NEGATIVE Meds: Medications Generic Name Dose Route Start Last Admin Trade Name Freq PRN Reason Stop Dose Admin Acetaminophen 650 mg 08/24/21 15:12 Acetaminophen 325 Mg Tab PO Q4H PRN Pain (Mild 1-3)/fever Buspirone HCl 15 mg 08/24/21 18:00 08/24/21 21:09 Buspirone 5 Mg Tab PO 15 mg TID DAVID Administration Duloxetine HCl 30 mg 08/25/21 09:00 Duloxetine 30 Mg Cap PO DAILY DAVID Lactated Ringer's 1,000 mls @ 125 mls/hr 08/24/21 15:15 08/24/21 21:25 Ringers, Lactated IV 125 mls/hr ASDIRECTED DAVID Administration Pantoprazole Sodium 40 mg/ 10 mls @ 300 mls/hr 08/24/21 16:00 08/24/21 18:12 Sodium Chloride IV 300 mls/hr Q12H DAVID Administration Piperacillin Sod/Tazobactam 100 mls @ 200 mls/hr 08/24/21 17:00 08/24/21 18:10 Sod 4.5 gm/ Sodium Chloride IV 200 mls/hr Q12H DAVID Administration Lorazepam 0.5 mg 08/24/21 22:00 08/24/21 21:10 Lorazepam 0.5 Mg Tab PO 0.5 mg TID DAVID Administration Ondansetron HCl 4 mg 08/24/21 15:12 Ondansetron 4 Mg/2 Ml Sdv IVPUSH Q4H PRN Nausea/Vomiting Propranolol HCl 40 mg 08/25/21 09:00 Propranolol 20 Mg Tab PO BID DAVID Trazodone HCl 100 mg 08/24/21 17:52 08/24/21 21:10 Trazodone 50 Mg Tab PO 100 mg BEDTIME PRN Administration Sleep Discontinued Medications Generic Name Dose Route Start Last Admin Trade Name Freq PRN Reason Stop Dose Admin Acetaminophen 1,000 mg 08/24/21 13:22 08/24/21 13:54 Acetaminophen 500 Mg Tab PO 08/24/21 13:23 1,000 mg ONETIME ONE Administration Caffeine Citrate 20 mg 08/24/21 13:33 08/24/21 13:55 Caffeine Citrated (For Neonates) 60 Mg/3 Ml PO 08/24/21 13:34 20 mg ONETIME ONE Administration Sodium Chloride 1,000 mls @ 999 mls/hr 08/24/21 11:08 08/24/21 11:16 Normal Saline IV 08/24/21 12:08 999 mls/hr BOLUS ONE Administration Sodium Chloride 1,000 mls @ 999 mls/hr 08/24/21 12:24 08/24/21 12:57 Normal Saline IV 08/24/21 13:24 999 mls/hr STAT ONE Administration Piperacillin Sod/Tazobactam 50 mls @ 100 mls/hr 08/24/21 12:49 08/24/21 13:10 Sod 3.375 gm/ Sodium Chloride IV 08/24/21 13:18 100 mls/hr ONETIME ONE Administration Vancomycin HCl 1 gm/ Sodium 250 mls @ 166 mls/hr 08/24/21 14:22 08/24/21 14:42 Chloride IV 08/24/21 15:52 166 mls/hr ONETIME ONE Administration Lactated Ringer's 1,000 mls @ 999 mls/hr 08/24/21 15:12 08/24/21 15:36 Ringers, Lactated IV 08/24/21 16:12 999 mls/hr BOLUS ONE Administration Iopamidol 75 ml 08/24/21 13:18 08/24/21 13:18 Iopamidol 755 Mg/Ml 500 Ml Multipack Bottle IVPUSH 08/24/21 13:19 75 ml ONETIME STA Administration Lorazepam 0.5 mg 08/24/21 21:00 Lorazepam 2 Mg/Ml Sdv IVPUSH Q12H [facility] Propranolol HCl 40 mg 08/24/21 21:00 Propranolol 20 Mg Tab PO BID [facility] Departure - Departure Time of Disposition: 15:36 Disposition: Admitted As Inpatient 68 Clinical Impression: Colitis, Dehydration, Acute kidney injury, Hypovolemia Sepsis Qualifiers: Sepsis type: sepsis due to unspecified organism Sepsis acute organ dysfunction status: unspecified Qualified Code(s): A41.9 - Sepsis, unspecified organism - Discharge Information Sepsis Event Note (ED) - Evaluation Sepsis Screening Result: No Definite Risk - Focused Exam Vital Signs: Vital Signs Temp Pulse Resp BP Pulse Ox 08/24/21 13:53 80 18 110/51 L 97 08/24/21 13:11 77 17 97/49 L 98 08/24/21 12:33 79 17 86/49 L 97 08/24/21 11:31 80 17 94/59 L 94 L 08/24/21 10:54 96.7 F L 92 17 98/53 L 100 - My Orders Last 24 Hours: My Active Orders 08/24/21 11:08 Cardiac Monitoring [RC] Q8H 08/24/21 11:09 C DIFFICILE AG/TOXIN W/REFLEX [RM] Stat OVA & PARASITES BY IMMUNOASSAY [MREF] Stat STOOL CULTURE/SHIGA TOXIN [MREF] Stat 08/24/21 11:20 CULTURE BLOOD [BC] Stat 08/24/21 11:47 Blood Culture x2 Reflex Set [OM.PC] Stat 08/24/21 12:13 CULTURE BLOOD [BC] Stat - Assessment/Plan Last 24 Hours: My Active Orders 08/24/21 11:08 Cardiac Monitoring [RC] Q8H 08/24/21 11:09 C DIFFICILE AG/TOXIN W/REFLEX [RM] Stat OVA & PARASITES BY IMMUNOASSAY [MREF] Stat STOOL CULTURE/SHIGA TOXIN [MREF] Stat 08/24/21 11:20 CULTURE BLOOD [BC] Stat 08/24/21 11:47 Blood Culture x2 Reflex Set [OM.PC] Stat 08/24/21 12:13 CULTURE BLOOD [BC] Stat
--- NOTE | 2021-08-24 15:42 | PCM.EKG ---
#1 Interpretation EKG Date: 08/24/21 Time: 10:52 Rhythm: NSR Rate (Beats/Min): 90 [place]: Other ([facility]) P-Wave: Present QRS: Normal ST-T: Normal QT: Normal Comparison: No Change (01/11/19) EKG Interpretation Comments: Sinus Rhythm
--- NOTE | 2021-08-24 15:57 | US ---
INDICATION: Right upper abdominal pain. COMPARISON: Same day CT. TECHNIQUE: Right upper abdominal ultrasound utilizing grayscale and color Doppler sonography. FINDINGS: Visualized portions of the pancreas appear unremarkable. Liver appears normal in contour and echogenicity. No focal hepatic lesion or intrahepatic biliary dilatation identified. Main portal vein is patent with normal direction flow. Distended gallbladder measuring approximately 10.4 cm in length with wall measuring 4 mm thickness. No gallstones or echogenic sludge identified. Common bile duct measures 4 mm diameter. Right kidney measures 11.5 cm and length and is without hydronephrosis. Right upper pole simple appearing renal cyst measuring up to 3.5 cm. Imaged portions of the abdominal aorta and IVC appear unremarkable. IMPRESSION: Nonspecific gallbladder distention and mild wall thickening without cholelithiasis or definitive sonographic evidence of acute cholecystitis. Dictated by Waylon Salas MD @ 08/24/2021 3:55:41 PM Dictated by: Waylon Salas MD @ 08/24/2021 15:55:47 (Electronically Signed)
--- NOTE | 2021-08-24 15:59 | PCM.HP.2 ---
H&P History of Present Illness - General Date of Service: 08/24/21 Admit Problem/Dx: Admission Diagnosis/Problem Admission Diagnosis/Problem Colitis - History of Present Illness Initial Comments - Free Text/Narative: Patient is a 70-year-old female pmh of Cerebral Aneurysms s/p repair in 2000, Migraines, Seizure,Anxiety, Bipolar, Depression, OCD, who presents emergency room today with concern of generalized weakness/fatigue, increase in falls, multiple episodes of watery diarrhea, lower abdominal cramping x2 to 3 days. Upon arrival to the ED, patient's blood pressures are soft at about 98/53 with map of 65-70, otherwise vitally stable on exam. Patient does have dry mucous membranes and Hemoccult positive on exam without bacilio blood / melena. Patient's lower abdomen is mildly tender without guarding and rebound/Lazaro sign are negative. CBC shows a leukocytosis at 13.13 (lactate within normal limits). Patient is anemic with red blood cells of 3.43, hemoglobin 9.6, and hematocrit 29. Otherwise moderate consistency unremarkable. CMP does show bicarb decreased at 15.2 with a new elevation of creatinine at 4.1 and BUN of 59 suggestive of acute kidney failure. Lipase within normal limits. Troponin negative. Influenza, RSV, COVID-19 negative. CXR shows acute cardiopulmonary finding. Head without contrast shows no acute findings. Right transfrontal intraventricular catheter tip terminates in the roof of the third ventricle. The ventricles are slitlike in size. Metallic density in the right cerebellum likely representing embolism coils. Bifrontal encephalomalacia. Pelvic x-ray shows moderate degenerative changes of the left greater than right hip without evidence of acute osseous abnormality. Abdominal pelvic CT scan shows wall thickening of the transverse and descending colon compatible with nonspecific colitis. No pneumatosis or obvious vascular occlusion identified to suggest ischemia. Distended gallbladder of uncertain etiology. No radiopaque stones or evidence of gallbladder inflammation. No biliary dilation. Mild diffuse hepatic steatosis. Moderate hiatal hernia which is increased in size from prior. 1.8 cm right adnexal cystic lesion. This can be further evaluated with pelvic ultrasound. All incidental findings today of imaging today discussed with patient the importance to have this followed up at a later date with her primary care provider. Patient reccived IV fluids in ER and was admitted to hospital for further management. - Related Data Allergies/Adverse Reactions: Allergies Allergy/AdvReac Type Severity Reaction Status Date / Time haloperidol [From Haldol] Allergy seizures Verified 08/24/21 16:42 haloperidol lactate Allergy seizures Verified 08/24/21 16:42 [From Haldol] Home Medications: Home Meds Amitriptyline HCl 75 mg PO BEDTIME 08/24/21 [History] ClonazePAM [KlonoPIN] 1 mg PO BEDTIME 08/24/21 [History] DULoxetine [Cymbalta] 30 mg PO DAILY 08/24/21 [History] LORazepam [Ativan] 0.5 mg PO TID 08/24/21 [History] Oxymetazoline HCl [Afrin] 2 spray NS BEDTIME 08/24/21 [History] Propranolol [Inderal] 40 mg PO BID 08/24/21 [History] busPIRone [Buspar] 15 mg PO TID 08/24/21 [History] traZODone 100 mg PO BEDTIME PRN 08/24/21 [History] Past Medical History HEENT History: Reports: Cataract, Other (See Below) Other HEENT History: wears glasses Cardiovascular History: Reports: None Respiratory History: Reports: None Gastrointestinal History: Reports: GERD Genitourinary History: Reports: UTI, Recurrent 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: Musculoskeletal History: Reports: Other (See Below) Other Musculoskeletal History: left knee pain (DJD) Neurological History: Reports: Cerebral Aneurysms, Migraines, Seizure, Other (See Below) Other Neuro History: placement of coil for brain aneurysm Psychiatric History: Reports: Anxiety, Bipolar, Depression, OCD, Suicide Attempt Endocrine/Metabolic History: Reports: None Hematologic History: Reports: None Immunologic History: Reports: None Oncologic (Cancer) History: Reports: None Dermatologic History: Reports: None - Infectious Disease History Infectious Disease History: Reports: None - Past Surgical History Head Surgeries/Procedures: Reports: Other (See Below) HEENT Surgical History: Reports: Cataract Surgery, Tonsillectomy GI Surgical History: Reports: Appendectomy, Other (See Below) Other GI Surgeries/Procedures: hemorrhoidectomy Female Surgical History: Reports: Hysterectomy, Salpingo-Oophorectomy, Other (See Below) Other Female Surgeries/Procedures: cystocele repair, rectocele repair Social & Family History - Family History Family Medical History: No Pertinent Family History - Tobacco Use Tobacco Use Status *Q: Never Tobacco User Second Hand Smoke Exposure: No - Caffeine Use Caffeine Use: Reports: None - Recreational Drug Use Recreational Drug Use: No H&P Review of Systems - Review of Systems: Review Of Systems: See Below General: Reports: Malaise, Weakness, Fatigue. Denies: Fever, Chills Pulmonary: Denies: Shortness of Breath, Wheezing Gastrointestinal: Reports: Abdominal Pain, Anorexia, Diarrhea, Decreased Appetite, Nausea, Vomiting. Denies: Black Stool, Bloody Stool, Constipation, Difficulty Swallowing Genitourinary: Denies: Dysuria, Frequency, Burning, Pain Musculoskeletal: Denies: Neck Pain, Shoulder Pain, Arm Pain Skin: Denies: Cyanosis, Jaundice, Mottled Psychiatric: Reports: Mood Lability, Anxiety. Denies: Confusion, Depression, Homicidal Ideation, Hallucinations (Auditory) Neurological: Denies: Confusion, Headache, Numbness, Weakness Hematologic/Lymphatic: Denies: Anemia, Easy Bleeding Immunologic: Denies: Anaphylaxis, Food Allergy, Environmental Allergy Exam - Exam Exam: See Below - Vital Signs Vital Signs: Last Vital Signs Temp 36.4 C 08/24/21 14:48 Pulse 77 08/24/21 15:33 Resp 17 08/24/21 15:33 BP 112/57 L 08/24/21 15:33 Pulse Ox 98 08/24/21 15:33 Weight: 77.111 kg - Exam General: Alert, Oriented Neck: Supple, Trachea Midline Lungs: Clear to Auscultation, Normal Respiratory Effort, Decreased Breath Sounds Cardiovascular: Regular Rate, Regular Rhythm GI/Abdominal Exam: Normal Bowel Sounds, Soft, Non-Tender - Patient Data Lab Results Last 24 hrs: Laboratory Results - last 24 hr 08/24/21 08/24/21 08/24/21 Range/Units 11:01 11:15 11:15 WBC 13.13 H (4.0-11.0) K/uL RBC 3.43 L (4.30-5.90) M/uL Hgb 9.6 L (12.0-16.0) g/dL Hct 29.0 L (36.0-46.0) % MCV 84.5 (80.0-98.0) fL MCH 28.0 (27.0-32.0) pg MCHC 33.1 (31.0-37.0) g/dL RDW Std Deviation 61.4 (28.0-62.0) fl RDW Coeff of Shabbir 20 H (11.0-15.0) % Plt Count 237 (150-400) K/uL MPV 9.60 (7.40-12.00) fL Neut % (Auto) 87.4 H (48.0-80.0) % Lymph % (Auto) 4.7 L (16.0-40.0) % [place] % (Auto) 7.7 (0.0-15.0) % Eos % (Auto) 0.1 (0.0-7.0) % Baso % (Auto) 0.1 (0.0-1.5) % Neut # (Auto) 11.5 H (1.4-5.7) K/uL Lymph # (Auto) 0.6 (0.6-2.4) K/uL [place] # (Auto) 1.0 H (0.0-0.8) K/uL Eos # (Auto) 0.0 (0.0-0.7) K/uL Baso # (Auto) 0.0 (0.0-0.1) K/uL Nucleated RBC % 0.0 /100WBC Nucleated RBCs # 0 K/uL Sodium 138 (136-145) mmol/L Potassium 4.5 (3.5-5.1) mmol/L Chloride 109 H (98-107) mmol/L Carbon Dioxide 15.2 L (21.0-32.0) mmol/L BUN 59 H (7.0-18.0) mg/dL Creatinine 4.1 H (0.6-1.0) mg/dL Est Cr Clr Drug Dosing 10.86 mL/min Estimated GFR (MDRD) 10.8 ml/min Glucose 106 (74-106) mg/dL Lactic Acid (0.4-2.0) mmol/L Calcium 11.7 H (8.5-10.1) mg/dL Total Bilirubin 0.3 (0.2-1.0) mg/dL AST 16 (15-37) IU/L ALT 14 (14-63) IU/L Alkaline Phosphatase 95 (46-116) U/L Troponin I < 0.050 (0.000-0.056) ng/mL Total Protein 6.0 L (6.4-8.2) g/dL Albumin 2.8 L (3.4-5.0) g/dL Globulin 3.2 (2.6-4.0) g/dL Albumin/Globulin Ratio 0.9 (0.9-1.6) Lipase 304 (73-393) U/L Influenza Type A RNA NEGATIVE (NEGATIVE) RSV RNA (INAAT) NEGATIVE (NEGATIVE) Influenza Type B RNA NEGATIVE (NEGATIVE) SARS-CoV-2 RNA ([place]) NEGATIVE (NEGATIVE) Blood Type Antibody Screen 08/24/21 08/24/21 08/24/21 Range/Units 11:20 11:21 13:00 WBC (4.0-11.0) K/uL RBC (4.30-5.90) M/uL Hgb 8.6 L (12.0-16.0) g/dL Hct 25.8 L (36.0-46.0) % MCV (80.0-98.0) fL MCH (27.0-32.0) pg MCHC (31.0-37.0) g/dL RDW Std Deviation (28.0-62.0) fl RDW Coeff of Shabbir (11.0-15.0) % Plt Count (150-400) K/uL MPV (7.40-12.00) fL Neut % (Auto) (48.0-80.0) % Lymph % (Auto) (16.0-40.0) % [place] % (Auto) (0.0-15.0) % Eos % (Auto) (0.0-7.0) % Baso % (Auto) (0.0-1.5) % Neut # (Auto) (1.4-5.7) K/uL Lymph # (Auto) (0.6-2.4) K/uL [place] # (Auto) (0.0-0.8) K/uL Eos # (Auto) (0.0-0.7) K/uL Baso # (Auto) (0.0-0.1) K/uL Nucleated RBC % /100WBC Nucleated RBCs # K/uL Sodium (136-145) mmol/L Potassium (3.5-5.1) mmol/L Chloride (98-107) mmol/L Carbon Dioxide (21.0-32.0) mmol/L BUN (7.0-18.0) mg/dL Creatinine (0.6-1.0) mg/dL Est Cr Clr Drug Dosing mL/min Estimated GFR (MDRD) ml/min Glucose (74-106) mg/dL Lactic Acid 1.2 (0.4-2.0) mmol/L Calcium (8.5-10.1) mg/dL Total Bilirubin (0.2-1.0) mg/dL AST (15-37) IU/L ALT (14-63) IU/L Alkaline Phosphatase (46-116) U/L Troponin I (0.000-0.056) ng/mL Total Protein (6.4-8.2) g/dL Albumin (3.4-5.0) g/dL Globulin (2.6-4.0) g/dL Albumin/Globulin Ratio (0.9-1.6) Lipase (73-393) U/L Influenza Type A RNA (NEGATIVE) RSV RNA (INAAT) (NEGATIVE) Influenza Type B RNA (NEGATIVE) SARS-CoV-2 RNA ([place]) (NEGATIVE) Blood Type O POSITIVE Antibody Screen NEGATIVE Result Diagrams: 08/24/21 13:00 08/24/21 11:15 Truong Results Last 24 hrs: Microbiology 08/24/21 11:20 Anaerobic Blood Culture - Final Blood - Venous - Lab Draw 08/24/21 12:13 Anaerobic Blood Culture - Final Blood - Venous Sepsis Event Note - Evaluation Sepsis Screening Result: No Definite Risk - Focused Exam Vital Signs: Vital Signs Temp Pulse Resp BP BP Pulse Ox 08/24/21 15:33 77 17 112/57 L 98 08/24/21 15:01 88 18 95/47 L 98 08/24/21 14:48 36.4 C 82 15 82/40 L 98 08/24/21 13:53 80 18 110/51 L 97 08/24/21 13:11 77 17 97/49 L 98 08/24/21 12:33 79 17 86/49 L 97 08/24/21 11:31 80 17 94/59 L 94 L 08/24/21 10:54 35.9 C L 92 17 98/53 L 100 Problem List Initiated/Reviewed/Updated: Yes Orders Last 24hrs: Active Orders 24 hr Category Date Time Status Admission Status [Patient Status] [ADT] Stat ADT 08/24/21 14:38 Active Antiembolic Devices [RC] PER UNIT ROUTINE Care 08/24/21 15:15 Active Cardiac Monitoring [RC] . DIRECTED Care 08/24/21 11:08 Active Oxygen Therapy [RC] PRN Care 08/24/21 15:12 Active Pulse Oximetry [RC] PRN Care 08/24/21 15:15 Active VTE/DVT Education [RC] PER UNIT ROUTINE Care 08/24/21 15:12 Active Vital Signs [RC] Q4H Care 08/24/21 15:12 Active Clear Liquid Diet [DIET] Diet 08/24/21 Dinner Active C DIFFICILE AG/TOXIN W/REFLEX [RM] Stat Lab 08/24/21 11:09 Ordered CULTURE BLOOD [BC] Stat Lab 08/24/21 11:20 Results CULTURE BLOOD [BC] Stat Lab 08/24/21 12:13 Results OVA & PARASITES BY IMMUNOASSAY [MREF] Stat Lab 08/24/21 11:09 Ordered STOOL CULTURE/SHIGA TOXIN [MREF] Stat Lab 08/24/21 11:09 Ordered UA RFX TRUONG AND CULT IF INDIC [URIN] Stat Lab 08/24/21 11:08 Ordered Acetaminophen [TylenoL] Med 08/24/21 15:12 Active 650 mg PO Q4H PRN LORazepam [Ativan] Med 08/24/21 21:00 Active 0.5 mg IVPUSH Q12H Lactated Ringers [Ringers, Lactated] 1,000 ml Med 08/24/21 15:15 Active IV ASDIRECTED Lactated Ringers [Ringers, Lactated] 1,000 ml Med 08/24/21 15:12 Active IV BOLUS Ondansetron [Zofran] Med 08/24/21 15:12 Active 4 mg IVPUSH Q4H PRN Pantoprazole [ProTONIX IV] 40 mg Med 08/24/21 16:00 Active Sodium Chloride 0.9% [Normal Saline] 10 ml IV Q12H Piperacillin/Tazobactam [Piperacil-Tazobact] 3.375 gm Med 08/24/21 16:00 Ordered Sodium Chloride 0.9% [Normal Saline] 50 ml IV Q12H Blood Culture x2 Reflex Set [OM.PC] Stat Oth 08/24/21 11:47 Ordered Sequential Compression Device [OM.PC] Per Unit Routine Oth 08/24/21 15:15 Ordered Medication Orders Acetaminophen (Acetaminophen 325 Mg Tab) 650 mg PO Q4H PRN PRN Reason: Pain (Mild 1-3)/fever Lactated Ringer's (Ringers, Lactated) 1,000 mls @ 999 mls/hr IV BOLUS ONE Stop: 08/24/21 16:12 Last Admin: 08/24/21 15:36 Dose: 999 mls/hr Documented by: SEWATIF Lactated Ringer's (Ringers, Lactated) 1,000 mls @ 125 mls/hr IV ASDIRECTED DAVID Pantoprazole Sodium 40 mg/ (Sodium Chloride) 10 mls @ 300 mls/hr IV Q12H DAVID Piperacillin Sod/Tazobactam (Sod 3.375 gm/ Sodium Chloride) 50 mls @ 100 mls/hr IV Q12H DAVID Lorazepam (Lorazepam 2 Mg/Ml Sdv) 0.5 mg IVPUSH Q12H DAVID Ondansetron HCl (Ondansetron 4 Mg/2 Ml Sdv) 4 mg IVPUSH Q4H PRN PRN Reason: Nausea/Vomiting Assessment/Plan Comment:: 70-year-old female admitted for acute kidney failure secondary to hypovolemia because due to diarrhea start aggressive IV fluid hydration with LR IV Zofran for nausea vomiting IV PPI twice a day patient was Hemoccult was positive although no bacilio blood noted UNRULY likely secondary to hypovolemia, prerenal/renal component which will likely slowly improving next few days check urine electrolytes and urine creatinine repeat BMP in a.m. monitor kidney function currently no indication for dialysis, patient is making good amount of urine clear diet and advance as tolerated continue home meds as appropriate
[2021-08-24] MEDS ORDERED: traZODone 50 MG Tab PO PRN (17:52)
[2021-08-24] MEDS: Piperacillin/Tazobactam 4.5 GM in Sodium Chloride 0.9% 100 ML IV SCH (18:10)
[2021-08-24] MEDS: Pantoprazole 40 MG in Sodium Chloride 0.9% 10 ML IV SCH (18:12)
[2021-08-24] MEDS ORDERED: Propranolol 20 MG Tab PO SCH (21:00)
[2021-08-24] MEDS ORDERED: LORazepam 2 MG/ML SDV IVPUSH SCH (21:00)
[2021-08-24] MEDS: busPIRone 5 MG Tab PO SCH ×2 (21:09)
[2021-08-24] MEDS: LORazepam 0.5 MG Tab PO SCH (21:10)
[2021-08-24] MEDS: Lactated Ringers 1,000 ML IV SCH (21:25)
[2021-08-25] MEDS: Pantoprazole 40 MG in Sodium Chloride 0.9% 10 ML IV SCH ×2 (04:13→16:26)
[2021-08-25] MEDS: Piperacillin/Tazobactam 4.5 GM in Sodium Chloride 0.9% 100 ML IV SCH ×2 (04:13→16:26)
[2021-08-25] MEDS: LORazepam 0.5 MG Tab PO SCH ×3 (05:52→21:29)
[2021-08-25] MEDS: busPIRone 5 MG Tab PO SCH ×3 (05:53→21:29)
[2021-08-25] MEDS: Lactated Ringers 1,000 ML IV SCH ×2 (07:43→16:30)
[2021-08-25 07:44] LABS: CARBON DIOXIDE,CO2 13.5 mmol/L (21.0-32.0); POTASSIUM,K 3.8 mmol/L (3.5-5.1)
[2021-08-25] MEDS: DULoxetine 30 MG Cap PO SCH (09:36)
[2021-08-25] MEDS: Propranolol 20 MG Tab PO SCH ×2 (09:36→21:28)
[2021-08-25] MEDS: Acetaminophen 325 MG Tab PO PRN (11:49)
--- NOTE | 2021-08-25 14:22 | PCM.PN ---
- General Info Date of Service: 08/25/21 Admission Dx/Problem (Free Text): Admission Diagnosis/Problem Admission Diagnosis/Problem Colitis Subjective Update: seen at bedside, feeling much better Functional Status: Reports: Pain Controlled, Tolerating Diet, Ambulating, Urinating - Review of Systems General: Reports: Fever, Weakness. Denies: Fatigue Pulmonary: Denies: Shortness of Breath, Pleuritic Chest Pain Cardiovascular: Reports: Chest Pain. Denies: Palpitations Gastrointestinal: Denies: Abdominal Pain, Constipation, Decreased Appetite Genitourinary: Denies: Frequency, Burning Musculoskeletal: Denies: Shoulder Pain, Arm Pain Skin: Reports: Pallor. Denies: Jaundice, Mottled Neurological: Reports: Dizziness, Headache - Patient Data Vitals - Most Recent: Last Vital Signs Temp 36.4 C 08/25/21 12:00 Pulse 90 08/25/21 12:00 Resp 20 08/25/21 12:00 BP 112/73 08/25/21 12:00 Pulse Ox 95 08/25/21 12:00 Weight - Most Recent: 75.296 kg I&O - Last 24 Hours: Intake & Output 08/24/21 08/25/21 08/25/21 22:59 06:59 14:59 Intake Total 450 Output Total 300 Balance 150 Lab Results Last 24 Hours: Laboratory Results - last 24 hr 08/24/21 08/25/21 08/25/21 Range/Units 17:48 06:45 06:45 WBC 10.35 (4.0-11.0) K/uL RBC 3.15 L (4.30-5.90) M/uL Hgb 8.7 L (12.0-16.0) g/dL Hct 27.0 L (36.0-46.0) % MCV 85.7 (80.0-98.0) fL MCH 27.6 (27.0-32.0) pg MCHC 32.2 (31.0-37.0) g/dL RDW Std Deviation 65.3 H (28.0-62.0) fl RDW Coeff of Shabbir 21 H (11.0-15.0) % Plt Count 222 (150-400) K/uL MPV 9.50 (7.40-12.00) fL Neut % (Auto) 75.6 (48.0-80.0) % Lymph % (Auto) 11.6 L (16.0-40.0) % [place] % (Auto) 11.2 (0.0-15.0) % Eos % (Auto) 1.4 (0.0-7.0) % Baso % (Auto) 0.2 (0.0-1.5) % Neut # (Auto) 7.8 H (1.4-5.7) K/uL Lymph # (Auto) 1.2 (0.6-2.4) K/uL [place] # (Auto) 1.2 H (0.0-0.8) K/uL Eos # (Auto) 0.1 (0.0-0.7) K/uL Baso # (Auto) 0.0 (0.0-0.1) K/uL Nucleated RBC % 0.0 /100WBC Nucleated RBCs # 0 K/uL Sodium 144 (136-145) mmol/L Potassium 3.8 (3.5-5.1) mmol/L Chloride 112 H (98-107) mmol/L Carbon Dioxide 13.5 L (21.0-32.0) mmol/L BUN 51 H (7.0-18.0) mg/dL Creatinine 3.8 H (0.6-1.0) mg/dL Est Cr Clr Drug Dosing 11.72 mL/min Estimated GFR (MDRD) 11.8 ml/min Glucose 94 (74-106) mg/dL Calcium 9.7 (8.5-10.1) mg/dL Phosphorus 4.0 (2.6-4.7) mg/dL Magnesium 2.6 H (1.8-2.4) mg/dL Urine Color YELLOW Urine Appearance CLEAR Urine pH 5.5 (5.0-8.0) Ur Specific [place] 1.015 (1.001-1.035) Urine Protein NEGATIVE (NEGATIVE) mg/dL Urine Glucose (UA) NEGATIVE (NEGATIVE) mg/dL Urine Ketones NEGATIVE (NEGATIVE) mg/dL Urine Occult Blood NEGATIVE (NEGATIVE) Urine Nitrite NEGATIVE (NEGATIVE) Urine Bilirubin NEGATIVE (NEGATIVE) Urine Urobilinogen 0.2 (<2.0) EU/dL Ur Leukocyte Esterase NEGATIVE (NEGATIVE) Truong Results Last 24 Hours: Microbiology 08/24/21 11:20 Aerobic Blood Culture - Preliminary Blood - Venous - Lab Draw NO GROWTH AFTER 1 DAY Anaerobic Blood Culture - Final 08/24/21 12:13 Aerobic Blood Culture - Preliminary Blood - Venous NO GROWTH AFTER 1 DAY Anaerobic Blood Culture - Final Med Orders - Current: Current Medications Acetaminophen (Acetaminophen 325 Mg Tab) 650 mg PO Q4H PRN PRN Reason: Pain (Mild 1-3)/fever Last Admin: 08/25/21 11:49 Dose: 650 mg Documented by: Buspirone HCl (Buspirone 5 Mg Tab) 15 mg PO TID [facility] Last Admin: 08/25/21 13:27 Dose: 15 mg Documented by: Duloxetine HCl (Duloxetine 30 Mg Cap) 30 mg PO DAILY [facility] Last Admin: 08/25/21 09:36 Dose: 30 mg Documented by: Lactated Ringer's (Ringers, Lactated) 1,000 mls @ 125 mls/hr IV ASDIRECTED [facility] Last Admin: 08/25/21 07:43 Dose: 125 mls/hr Documented by: Pantoprazole Sodium 40 mg/ (Sodium Chloride) 10 mls @ 300 mls/hr IV Q12H [facility] Last Admin: 08/25/21 04:13 Dose: 300 mls/hr Documented by: Piperacillin Sod/Tazobactam (Sod 4.5 gm/ Sodium Chloride) 100 mls @ 200 mls/hr IV Q12H [facility] Last Admin: 08/25/21 04:13 Dose: 200 mls/hr Documented by: Lorazepam (Lorazepam 0.5 Mg Tab) 0.5 mg PO TID [facility] Last Admin: 08/25/21 13:27 Dose: 0.5 mg Documented by: Ondansetron HCl (Ondansetron 4 Mg/2 Ml Sdv) 4 mg IVPUSH Q4H PRN PRN Reason: Nausea/Vomiting Last Admin: 08/25/21 11:51 Dose: 4 mg Documented by: Oxymetazoline HCl (Oxymetazoline 0.05% Nasal [place] 15 Ml Bottle) 2 ml BERNARDA BEDTIME [facility] Propranolol HCl (Propranolol 20 Mg Tab) 40 mg PO BID [facility] Last Admin: 08/25/21 09:36 Dose: 40 mg Documented by: Trazodone HCl (Trazodone 50 Mg Tab) 100 mg PO BEDTIME PRN PRN Reason: Sleep Last Admin: 08/24/21 21:10 Dose: 100 mg Documented by: Discontinued Medications Acetaminophen (Acetaminophen 500 Mg Tab) 1,000 mg PO ONETIME ONE Stop: 08/24/21 13:23 Last Admin: 08/24/21 13:54 Dose: 1,000 mg Documented by: Caffeine Citrate (Caffeine Citrated (For Neonates) 60 Mg/3 Ml) 20 mg PO ONETIME ONE Stop: 08/24/21 13:34 Last Admin: 08/24/21 13:55 Dose: 20 mg Documented by: Sodium Chloride (Normal Saline) 1,000 mls @ 999 mls/hr IV BOLUS ONE Stop: 08/24/21 12:08 Last Admin: 08/24/21 11:16 Dose: 999 mls/hr Documented by: Sodium Chloride (Normal Saline) 1,000 mls @ 999 mls/hr IV STAT ONE Stop: 08/24/21 13:24 Last Admin: 08/24/21 12:57 Dose: 999 mls/hr Documented by: Piperacillin Sod/Tazobactam (Sod 3.375 gm/ Sodium Chloride) 50 mls @ 100 mls/hr IV ONETIME ONE Stop: 08/24/21 13:18 Last Admin: 08/24/21 13:10 Dose: 100 mls/hr Documented by: Vancomycin HCl 1 gm/ Sodium (Chloride) 250 mls @ 166 mls/hr IV ONETIME ONE Stop: 08/24/21 15:52 Last Admin: 08/24/21 14:42 Dose: 166 mls/hr Documented by: Lactated Ringer's (Ringers, Lactated) 1,000 mls @ 999 mls/hr IV BOLUS ONE Stop: 08/24/21 16:12 Last Admin: 08/24/21 15:36 Dose: 999 mls/hr Documented by: Iopamidol (Iopamidol 755 Mg/Ml 500 Ml Multipack Bottle) 75 ml IVPUSH ONETIME STA Stop: 08/24/21 13:19 Last Admin: 08/24/21 13:18 Dose: 75 ml Documented by: Lorazepam (Lorazepam 2 Mg/Ml Sdv) 0.5 mg IVPUSH Q12H DAVID Propranolol HCl (Propranolol 20 Mg Tab) 40 mg PO BID DAVID - Exam General: Alert, Oriented Lungs: Clear to Auscultation, Normal Respiratory Effort Cardiovascular: Regular Rate, Regular Rhythm GI/Abdominal Exam: Normal Bowel Sounds, Soft, Non-Tender - Patient Data Lab Results Last 24 hrs: Laboratory Results - last 24 hr 08/24/21 08/25/21 08/25/21 Range/Units 17:48 06:45 06:45 WBC 10.35 (4.0-11.0) K/uL RBC 3.15 L (4.30-5.90) M/uL Hgb 8.7 L (12.0-16.0) g/dL Hct 27.0 L (36.0-46.0) % MCV 85.7 (80.0-98.0) fL MCH 27.6 (27.0-32.0) pg MCHC 32.2 (31.0-37.0) g/dL RDW Std Deviation 65.3 H (28.0-62.0) fl RDW Coeff of Shabbir 21 H (11.0-15.0) % Plt Count 222 (150-400) K/uL MPV 9.50 (7.40-12.00) fL Neut % (Auto) 75.6 (48.0-80.0) % Lymph % (Auto) 11.6 L (16.0-40.0) % [place] % (Auto) 11.2 (0.0-15.0) % Eos % (Auto) 1.4 (0.0-7.0) % Baso % (Auto) 0.2 (0.0-1.5) % Neut # (Auto) 7.8 H (1.4-5.7) K/uL Lymph # (Auto) 1.2 (0.6-2.4) K/uL [place] # (Auto) 1.2 H (0.0-0.8) K/uL Eos # (Auto) 0.1 (0.0-0.7) K/uL Baso # (Auto) 0.0 (0.0-0.1) K/uL Nucleated RBC % 0.0 /100WBC Nucleated RBCs # 0 K/uL Sodium 144 (136-145) mmol/L Potassium 3.8 (3.5-5.1) mmol/L Chloride 112 H (98-107) mmol/L Carbon Dioxide 13.5 L (21.0-32.0) mmol/L BUN 51 H (7.0-18.0) mg/dL Creatinine 3.8 H (0.6-1.0) mg/dL Est Cr Clr Drug Dosing 11.72 mL/min Estimated GFR (MDRD) 11.8 ml/min Glucose 94 (74-106) mg/dL Calcium 9.7 (8.5-10.1) mg/dL Phosphorus 4.0 (2.6-4.7) mg/dL Magnesium 2.6 H (1.8-2.4) mg/dL Urine Color YELLOW Urine Appearance CLEAR Urine pH 5.5 (5.0-8.0) Ur Specific [place] 1.015 (1.001-1.035) Urine Protein NEGATIVE (NEGATIVE) mg/dL Urine Glucose (UA) NEGATIVE (NEGATIVE) mg/dL Urine Ketones NEGATIVE (NEGATIVE) mg/dL Urine Occult Blood NEGATIVE (NEGATIVE) Urine Nitrite NEGATIVE (NEGATIVE) Urine Bilirubin NEGATIVE (NEGATIVE) Urine Urobilinogen 0.2 (<2.0) EU/dL Ur Leukocyte Esterase NEGATIVE (NEGATIVE) Result Diagrams: 08/25/21 06:45 08/25/21 06:45 Truong Results Last 24 hrs: Microbiology 08/24/21 11:20 Aerobic Blood Culture - Preliminary Blood - Venous - Lab Draw NO GROWTH AFTER 1 DAY Anaerobic Blood Culture - Final 08/24/21 12:13 Aerobic Blood Culture - Preliminary Blood - Venous NO GROWTH AFTER 1 DAY Anaerobic Blood Culture - Final Sepsis Event Note - Evaluation Sepsis Screening Result: No Definite Risk - Focused Exam Vital Signs: Vital Signs Temp Pulse Resp BP BP Pulse Ox 08/25/21 12:00 36.4 C 90 20 112/73 95 08/25/21 07:29 36.4 C 84 16 110/78 97 08/25/21 04:00 86 16 115/65 95 - Problem List & Annotations (1) Acute kidney injury SNOMED Code(s): 46447227, 51949902 Code(s): N17.9 - ACUTE KIDNEY FAILURE, UNSPECIFIED Status: Acute Current Visit: Yes (2) Colitis SNOMED Code(s): 23327526 Code(s): K52.9 - NONINFECTIVE GASTROENTERITIS AND COLITIS, UNSPECIFIED Status: Acute Current Visit: Yes (3) Dehydration SNOMED Code(s): 21166565 Code(s): E86.0 - DEHYDRATION Status: Acute Current Visit: Yes (4) Hypovolemia SNOMED Code(s): 809853349 Code(s): E86.1 - HYPOVOLEMIA Status: Acute Current Visit: Yes (5) Sepsis SNOMED Code(s): 24498840 Code(s): A41.9 - SEPSIS, UNSPECIFIED ORGANISM Status: Acute Current Visit: Yes Qualifiers: Sepsis type: sepsis due to unspecified organism Sepsis acute organ dysfunction status: unspecified Qualified Code(s): A41.9 - Sepsis, unspecified organism - Problem List Review Problem List Initiated/Reviewed/Updated: Yes - My Orders Last 24 Hours: My Active Orders 08/24/21 15:12 Oxygen Therapy [RC] PRN VTE/DVT Education [RC] PER UNIT ROUTINE Vital Signs [RC] Q4H Acetaminophen [TylenoL] 650 mg PO Q4H PRN Ondansetron [Zofran] 4 mg IVPUSH Q4H PRN 08/24/21 15:15 Antiembolic Devices [RC] PER UNIT ROUTINE Pulse Oximetry [RC] PRN Lactated Ringers [Ringers, Lactated] 1,000 ml IV ASDIRECTED Sequential Compression Device [OM.PC] Per Unit Routine 08/24/21 16:00 Pantoprazole [ProTONIX IV] 40 mg Sodium Chloride 0.9% [Normal Saline] 10 ml IV Q12H 08/24/21 16:07 Telemetry Monitoring [Cardiac Monitoring] [RC] . DIRECTED 08/24/21 17:00 Piperacillin/Tazobactam [Piperacil-Tazobact] 4.5 gm Sodium Chloride 0.9% [Normal Saline] 100 ml IV Q12H 08/24/21 23:57 CREATININE,URINE RAND [URCHEM] Routine ELECTROLYTES,URINE RANDOM [URCHEM] Routine 08/25/21 09:00 Propranolol [Inderal] 40 mg PO BID 08/25/21 Lunch Soft Diet [DIET] 08/25/21 21:00 Oxymetazoline [Afrin Original 0.05% Nasal [place]] 2 ml BERNARDA BEDTIME - Plan Plan:: 70-year-old female admitted for acute kidney failure secondary to hypovolemia because due to diarrhea Diarrhea has resolved cont IV fluid hydration with LR IV Zofran for nausea vomiting IV PPI twice a day patient was Hemoccult was positive although no bacilio blood noted, needs outpatient endoscopy and colonoscopy ,, long standing h/o GERD UNRULY likely secondary to hypovolemia, prerenal/renal component which will likely slowly improving next few days check urine electrolytes and urine creatinine, still pending repeat BMP in a.m. monitor kidney function currently no indication for dialysis, patient is making good amount of urine soft and advance as tolerated continue home meds as appropriate
[2021-08-25] MEDS: Oxymetazoline 0.05% Nasal Spray 15 ML Bottle NAS SCH (21:45)
[2021-08-26] MEDS: Lactated Ringers 1,000 ML IV SCH ×2 (02:07→11:12)
[2021-08-26] MEDS: Pantoprazole 40 MG in Sodium Chloride 0.9% 10 ML IV SCH ×2 (03:23→16:07)
[2021-08-26] MEDS: Piperacillin/Tazobactam 4.5 GM in Sodium Chloride 0.9% 100 ML IV SCH ×2 (05:43→16:07)
[2021-08-26] MEDS: busPIRone 5 MG Tab PO SCH ×3 (05:46→21:17)
[2021-08-26] MEDS: LORazepam 0.5 MG Tab PO SCH ×3 (05:46→21:17)
[2021-08-26 06:29] LABS: CARBON DIOXIDE,CO2 16.3 mmol/L (21.0-32.0); POTASSIUM,K 4.1 mmol/L (3.5-5.1)
[2021-08-26] MEDS ORDERED: Morphine 2 MG/ML SYRINGE IVPUSH ONE (07:59)
[2021-08-26] MEDS: DULoxetine 30 MG Cap PO SCH (08:11)
[2021-08-26] MEDS: Propranolol 20 MG Tab PO SCH ×2 (08:11→21:17)
--- NOTE | 2021-08-26 11:06 | PCM.PN ---
- General Info Date of Service: 08/26/21 Admission Dx/Problem (Free Text): Admission Diagnosis/Problem Admission Diagnosis/Problem Colitis Subjective Update: seen at bedside, feeling much better, states she had 2 episodes of loose stools since last night, no n/v or abdominal pain Functional Status: Reports: Tolerating Diet, Ambulating, Urinating - Review of Systems General: Denies: Fever, Weakness, Fatigue Pulmonary: Denies: Shortness of Breath, Pleuritic Chest Pain Cardiovascular: Denies: Chest Pain, Palpitations, Dyspnea on Exertion Gastrointestinal: Reports: Diarrhea. Denies: Abdominal Pain, Constipation, Decreased Appetite, Difficulty Swallowing Genitourinary: Denies: Dysuria, Frequency, Burning, Pain Musculoskeletal: Denies: Neck Pain, Shoulder Pain, Arm Pain Skin: Denies: Cyanosis, Jaundice, Mottled, Pallor Neurological: Denies: Confusion, Dizziness, Headache - Patient Data Vitals - Most Recent: Last Vital Signs Temp 36.1 C 08/26/21 07:00 Pulse 70 08/26/21 07:00 Resp 16 08/26/21 07:00 BP 144/75 H 08/26/21 07:00 Pulse Ox 99 08/26/21 07:00 Weight - Most Recent: 75.296 kg I&O - Last 24 Hours: Intake & Output 08/25/21 08/26/21 08/26/21 22:59 06:59 14:59 Intake Total 3260 425 Output Total 675 Balance 3260 -250 Lab Results Last 24 Hours: Laboratory Results - last 24 hr 08/26/21 08/26/21 Range/Units 05:50 05:50 WBC 6.77 (4.0-11.0) K/uL RBC 2.72 L (4.30-5.90) M/uL Hgb 7.5 L (12.0-16.0) g/dL Hct 23.1 L (36.0-46.0) % MCV 84.9 (80.0-98.0) fL MCH 27.6 (27.0-32.0) pg MCHC 32.5 (31.0-37.0) g/dL RDW Std Deviation 66.5 H (28.0-62.0) fl RDW Coeff of Shabbir 21 H (11.0-15.0) % Plt Count 210 (150-400) K/uL MPV 9.40 (7.40-12.00) fL Neut % (Auto) 64.8 (48.0-80.0) % Lymph % (Auto) 20.7 (16.0-40.0) % [place] % (Auto) 11.7 (0.0-15.0) % Eos % (Auto) 2.5 (0.0-7.0) % Baso % (Auto) 0.3 (0.0-1.5) % Neut # (Auto) 4.4 (1.4-5.7) K/uL Lymph # (Auto) 1.4 (0.6-2.4) K/uL [place] # (Auto) 0.8 (0.0-0.8) K/uL Eos # (Auto) 0.2 (0.0-0.7) K/uL Baso # (Auto) 0.0 (0.0-0.1) K/uL Nucleated RBC % 0.0 /100WBC Nucleated RBCs # 0 K/uL Sodium 147 H (136-145) mmol/L Potassium 4.1 (3.5-5.1) mmol/L Chloride 116 H (98-107) mmol/L Carbon Dioxide 16.3 L (21.0-32.0) mmol/L BUN 40 H (7.0-18.0) mg/dL Creatinine 3.5 H (0.6-1.0) mg/dL Est Cr Clr Drug Dosing 12.73 mL/min Estimated GFR (MDRD) 13.0 ml/min Glucose 91 (74-106) mg/dL Calcium 8.6 (8.5-10.1) mg/dL Truong Results Last 24 Hours: Microbiology 08/25/21 20:30 C. difficile Antigen & Toxins A,B - Final Stool / Feces 08/24/21 11:20 Aerobic Blood Culture - Preliminary Blood - Venous - Lab Draw NO GROWTH AFTER 1 DAY Anaerobic Blood Culture - Final 08/24/21 12:13 Aerobic Blood Culture - Preliminary Blood - Venous NO GROWTH AFTER 1 DAY Anaerobic Blood Culture - Final Med Orders - Current: Current Medications Acetaminophen (Acetaminophen 325 Mg Tab) 650 mg PO Q4H PRN PRN Reason: Pain (Mild 1-3)/fever Last Admin: 08/25/21 11:49 Dose: 650 mg Documented by: Buspirone HCl (Buspirone 5 Mg Tab) 15 mg PO TID [facility] Last Admin: 08/26/21 05:46 Dose: 15 mg Documented by: Duloxetine HCl (Duloxetine 30 Mg Cap) 30 mg PO DAILY [facility] Last Admin: 08/26/21 08:11 Dose: 30 mg Documented by: Lactated Ringer's (Ringers, Lactated) 1,000 mls @ 125 mls/hr IV ASDIRECTED [facility] Last Admin: 08/26/21 02:07 Dose: 125 mls/hr Documented by: Pantoprazole Sodium 40 mg/ (Sodium Chloride) 10 mls @ 300 mls/hr IV Q12H [facility] Last Admin: 08/26/21 03:23 Dose: 300 mls/hr Documented by: Piperacillin Sod/Tazobactam (Sod 4.5 gm/ Sodium Chloride) 100 mls @ 200 mls/hr IV Q12H [facility] Last Admin: 08/26/21 05:43 Dose: 200 mls/hr Documented by: Lorazepam (Lorazepam 0.5 Mg Tab) 0.5 mg PO TID [facility] Last Admin: 08/26/21 05:46 Dose: 0.5 mg Documented by: Ondansetron HCl (Ondansetron 4 Mg/2 Ml Sdv) 4 mg IVPUSH Q4H PRN PRN Reason: Nausea/Vomiting Last Admin: 08/25/21 11:51 Dose: 4 mg Documented by: Oxymetazoline HCl (Oxymetazoline 0.05% Nasal [place] 15 Ml Bottle) 2 ml BERNARDA BEDTIME [facility] Last Admin: 08/25/21 21:45 Dose: Not Given Documented by: Propranolol HCl (Propranolol 20 Mg Tab) 40 mg PO BID [facility] Last Admin: 08/26/21 08:11 Dose: 40 mg Documented by: Trazodone HCl (Trazodone 50 Mg Tab) 100 mg PO BEDTIME PRN PRN Reason: Sleep Last Admin: 08/24/21 21:10 Dose: 100 mg Documented by: Discontinued Medications Acetaminophen (Acetaminophen 500 Mg Tab) 1,000 mg PO ONETIME ONE Stop: 08/24/21 13:23 Last Admin: 08/24/21 13:54 Dose: 1,000 mg Documented by: Caffeine Citrate (Caffeine Citrated (For Neonates) 60 Mg/3 Ml) 20 mg PO ONETIME ONE Stop: 08/24/21 13:34 Last Admin: 08/24/21 13:55 Dose: 20 mg Documented by: Sodium Chloride (Normal Saline) 1,000 mls @ 999 mls/hr IV BOLUS ONE Stop: 08/24/21 12:08 Last Admin: 08/24/21 11:16 Dose: 999 mls/hr Documented by: Sodium Chloride (Normal Saline) 1,000 mls @ 999 mls/hr IV STAT ONE Stop: 08/24/21 13:24 Last Admin: 08/24/21 12:57 Dose: 999 mls/hr Documented by: Piperacillin Sod/Tazobactam (Sod 3.375 gm/ Sodium Chloride) 50 mls @ 100 mls/hr IV ONETIME ONE Stop: 08/24/21 13:18 Last Admin: 08/24/21 13:10 Dose: 100 mls/hr Documented by: Vancomycin HCl 1 gm/ Sodium (Chloride) 250 mls @ 166 mls/hr IV ONETIME ONE Stop: 08/24/21 15:52 Last Admin: 08/24/21 14:42 Dose: 166 mls/hr Documented by: Lactated Ringer's (Ringers, Lactated) 1,000 mls @ 999 mls/hr IV BOLUS ONE Stop: 08/24/21 16:12 Last Admin: 08/24/21 15:36 Dose: 999 mls/hr Documented by: Iopamidol (Iopamidol 755 Mg/Ml 500 Ml Multipack Bottle) 75 ml IVPUSH ONETIME STA Stop: 08/24/21 13:19 Last Admin: 08/24/21 13:18 Dose: 75 ml Documented by: Lorazepam (Lorazepam 2 Mg/Ml Sdv) 0.5 mg IVPUSH Q12H DAVID Morphine Sulfate (Morphine 2 Mg/Ml Syringe) 0.5 mg IVPUSH ONETIME ONE Stop: 08/26/21 08:00 Last Admin: 08/26/21 08:10 Dose: 0.5 mg Documented by: Propranolol HCl (Propranolol 20 Mg Tab) 40 mg PO BID DAVID - Exam General: Alert, Oriented, Cooperative, No Acute Distress Lungs: Clear to Auscultation, Normal Respiratory Effort Cardiovascular: Regular Rate, Regular Rhythm GI/Abdominal Exam: Normal Bowel Sounds, Soft, Non-Tender Extremities: Normal Inspection, Normal Range of Motion, Non-Tender - Patient Data Lab Results Last 24 hrs: Laboratory Results - last 24 hr 08/26/21 08/26/21 Range/Units 05:50 05:50 WBC 6.77 (4.0-11.0) K/uL RBC 2.72 L (4.30-5.90) M/uL Hgb 7.5 L (12.0-16.0) g/dL Hct 23.1 L (36.0-46.0) % MCV 84.9 (80.0-98.0) fL MCH 27.6 (27.0-32.0) pg MCHC 32.5 (31.0-37.0) g/dL RDW Std Deviation 66.5 H (28.0-62.0) fl RDW Coeff of Shabbir 21 H (11.0-15.0) % Plt Count 210 (150-400) K/uL MPV 9.40 (7.40-12.00) fL Neut % (Auto) 64.8 (48.0-80.0) % Lymph % (Auto) 20.7 (16.0-40.0) % [place] % (Auto) 11.7 (0.0-15.0) % Eos % (Auto) 2.5 (0.0-7.0) % Baso % (Auto) 0.3 (0.0-1.5) % Neut # (Auto) 4.4 (1.4-5.7) K/uL Lymph # (Auto) 1.4 (0.6-2.4) K/uL [place] # (Auto) 0.8 (0.0-0.8) K/uL Eos # (Auto) 0.2 (0.0-0.7) K/uL Baso # (Auto) 0.0 (0.0-0.1) K/uL Nucleated RBC % 0.0 /100WBC Nucleated RBCs # 0 K/uL Sodium 147 H (136-145) mmol/L Potassium 4.1 (3.5-5.1) mmol/L Chloride 116 H (98-107) mmol/L Carbon Dioxide 16.3 L (21.0-32.0) mmol/L BUN 40 H (7.0-18.0) mg/dL Creatinine 3.5 H (0.6-1.0) mg/dL Est Cr Clr Drug Dosing 12.73 mL/min Estimated GFR (MDRD) 13.0 ml/min Glucose 91 (74-106) mg/dL Calcium 8.6 (8.5-10.1) mg/dL Result Diagrams: 08/26/21 05:50 08/26/21 05:50 Truong Results Last 24 hrs: Microbiology 08/25/21 20:30 C. difficile Antigen & Toxins A,B - Final Stool / Feces 08/24/21 11:20 Aerobic Blood Culture - Preliminary Blood - Venous - Lab Draw NO GROWTH AFTER 1 DAY Anaerobic Blood Culture - Final 08/24/21 12:13 Aerobic Blood Culture - Preliminary Blood - Venous NO GROWTH AFTER 1 DAY Anaerobic Blood Culture - Final Sepsis Event Note - Evaluation Sepsis Screening Result: No Definite Risk - Focused Exam Vital Signs: Vital Signs Temp Pulse Resp BP Pulse Ox 08/26/21 07:00 36.1 C 70 16 144/75 H 99 08/26/21 03:29 86 16 127/83 96 08/26/21 00:00 36.8 C 86 14 136/77 97 - Problem List & Annotations (1) Acute kidney injury SNOMED Code(s): 54465139, 35132167 Code(s): N17.9 - ACUTE KIDNEY FAILURE, UNSPECIFIED Status: Acute Current Visit: Yes (2) Colitis SNOMED Code(s): 21460468 Code(s): K52.9 - NONINFECTIVE GASTROENTERITIS AND COLITIS, UNSPECIFIED Status: Acute Current Visit: Yes (3) Dehydration SNOMED Code(s): 15065837 Code(s): E86.0 - DEHYDRATION Status: Acute Current Visit: Yes (4) Hypovolemia SNOMED Code(s): 491179342 Code(s): E86.1 - HYPOVOLEMIA Status: Acute Current Visit: Yes (5) Sepsis SNOMED Code(s): 19330440 Code(s): A41.9 - SEPSIS, UNSPECIFIED ORGANISM Status: Acute Current Visit: Yes Qualifiers: Sepsis type: sepsis due to unspecified organism Sepsis acute organ dysfunction status: unspecified Qualified Code(s): A41.9 - Sepsis, unspecified organism (6) Adnexal cyst SNOMED Code(s): 35862404235031 Code(s): N94.9 - UNSP COND ASSOC W FEMALE GENITAL ORGANS AND MENSTRUAL CYCLE Status: Acute Current Visit: Yes - Problem List Review Problem List Initiated/Reviewed/Updated: Yes - My Orders Last 24 Hours: My Active Orders 08/25/21 Lunch Soft Diet [DIET] 08/25/21 21:00 Oxymetazoline [Afrin Original 0.05% Nasal [place]] 2 ml BERNARDA BEDTIME - Plan Plan:: 70-year-old female admitted for acute kidney failure secondary to hypovolemia because due to diarrhea cont IV fluid hydration with LR IV Zofran for nausea vomiting, resolved IV PPI twice a day patient was Hemoccult was positive although no bacilio blood noted, needs outpatient endoscopy and colonoscopy ,, long standing h/o GERD Cdiff negative, slight drop in Hb, likely dilutional, possible blackish stools, will check heme occult, possible minor GI bleeding from ongoing inflammation from colitis. UNRULY likely secondary to hypovolemia, prerenal/renal component which will likely slowly improving next few days, has multiple renal cysts on CT scan urine electrolytes and urine creatinine, still pending repeat BMP in a.m. monitor kidney function soft and advance as tolerated continue home meds as appropriate Adnexal cyst will need outpatient fu with [facility]
[2021-08-26] MEDS: Acetaminophen 325 MG Tab PO PRN (21:16)
[2021-08-26] MEDS: Oxymetazoline 0.05% Nasal Spray 15 ML Bottle NAS SCH (21:30)
[2021-08-27] MEDS: Pantoprazole 40 MG in Sodium Chloride 0.9% 10 ML IV SCH (03:25)
[2021-08-27] MEDS: Lactated Ringers 1,000 ML IV SCH (03:30)
[2021-08-27] MEDS: Piperacillin/Tazobactam 4.5 GM in Sodium Chloride 0.9% 100 ML IV SCH (05:53)
[2021-08-27] MEDS: busPIRone 5 MG Tab PO SCH (05:55)
[2021-08-27] MEDS: LORazepam 0.5 MG Tab PO SCH (05:55)
[2021-08-27 07:01] LABS: CARBON DIOXIDE,CO2 19.2 mmol/L (21.0-32.0); POTASSIUM,K 3.9 mmol/L (3.5-5.1)
[2021-08-27] MEDS: Propranolol 20 MG Tab PO SCH (08:44)
[2021-08-27] MEDS: Acetaminophen 325 MG Tab PO PRN (08:44)
[2021-08-27] MEDS: DULoxetine 30 MG Cap PO SCH (08:45)
[2021-08-27] MEDS ORDERED: Alum Hydrox/Mag Hydrox/Simeth 15 ML, Lidocaine 2% 5 ML PO ONE ×2 (10:15)
[2021-08-27] MEDS ORDERED: SUMAtriptan 6 MG/0.5 ML SDV SUBCUT PRN (10:18)
[2021-08-27] MEDS ORDERED: Morphine 2 MG/ML SYRINGE IVPUSH PRN (10:30)
--- NOTE | 2021-08-27 13:00 | PCM.DCSUM1 ---
Discharge Summary - Discharge Data Discharge Date: 08/27/21 Discharge Disposition: Home, Self-Care 01 Condition: Good - Referral to Home Health Primary Care Physician: [facility] - Patient Instructions Diet: Regular Diet as Tolerated Activity: As Tolerated - Discharge Plan Prescriptions/Med Rec: Amoxicillin/Clavulanate K [Augmentin 500-125 MG] 1 tab PO Q12H #14 tab Home Medications: Home Meds Amitriptyline HCl 75 mg PO BEDTIME 08/24/21 [History] ClonazePAM [KlonoPIN] 1 mg PO BEDTIME 08/24/21 [History] DULoxetine [Cymbalta] 30 mg PO DAILY 08/24/21 [History] LORazepam [Ativan] 0.5 mg PO TID 08/24/21 [History] Oxymetazoline HCl [Afrin] 2 spray NS BEDTIME 08/24/21 [History] Propranolol [Inderal] 40 mg PO BID 08/24/21 [History] busPIRone [Buspar] 15 mg PO TID 08/24/21 [History] traZODone 100 mg PO BEDTIME PRN 08/24/21 [History] Amoxicillin/Clavulanate K [Augmentin 500-125 MG] 1 tab PO Q12H #14 tab 08/27/21 [Rx] Forms: ED Department Discharge Referrals: Ruperto Vasques DO [Physician] - - Discharge Summary/Plan Comment DC Time >30 min.: No Total # of Minutes for Discharge Time: 20 Discharge Summary/Plan Comment: Patient is a 70-year-old female pmh of Cerebral Aneurysms s/p repair in 2000, Migraines, Seizure,Anxiety, Bipolar, Depression, OCD, who was admitted for acute kidney injury, dehydration and acute colitis. She presented to emergency roomwith concern of generalized weakness/fatigue, increase in falls, multiple episodes of watery diarrhea, lower abdominal cramping x2 to 3 days. Upon arrival to the ED, patient's blood pressures are soft at about 98/53 with map of 65-70, otherwise vitally stable on exam. Patient does have dry mucous membranes and Hemoccult positive on exam without bacilio blood / melena. Patient's lower abdomen is mildly tender without guarding and rebound/Lazaro sign are negative. CBC showed a leukocytosis at 13.13 (lactate within normal limits). Patient was anemic with hemoglobin 9.6, CMP does show bicarb decreased at 15.2 with a new elevation of creatinine at 4.1 and BUN of 59 suggestive of acute kidney failure. Lipase within normal limits. Troponin negative. Influenza, RSV, COVID-19 negative.CXR shows no acute cardiopulmonary finding. Head without contrast shows no acute findings. Pelvic x-ray shows moderate degenerative changes of the left greater than right hip without evidence of acute osseous abnormality. Abdominal pelvic CT scan shows wall thickening of the transverse and descending colon compatible with nonspecific colitis. No pneumatosis or obvious vascular occlusion identified to suggest ischemia. Distended gallbladder of uncertain etiology. No radiopaque stones or evidence of gallbladder inflammation. No biliary dilation. Mild diffuse hepatic steatosis. Moderate hiatal hernia which is increased in size from prior. 1.8 cm right adnexal cystic lesion. Patient was treated with IV fluids and Zosyn. She did have improvement in her symptoms and is tolerating an oral diet. Her creatinine did improve to 3.1. I recommended continued hospitalization to monitor kidney function but patient requested discharged. I will discharge the patient on oral augmentin for seven more days. She was instructed to follow up with her primary care provider and the need for pelvic ultrasound to evaluate adnexal lesion as well as colonoscopy. - Patient Data Vitals - Most Recent: Last Vital Signs Temp 36.5 C 08/27/21 07:00 Pulse 71 08/27/21 07:00 Resp 16 08/27/21 07:00 BP 143/70 H 08/27/21 07:00 Pulse Ox 97 08/27/21 07:00 Weight - Most Recent: 75.296 kg I&O - Last 24 hours: Intake & Output 08/26/21 08/27/21 08/27/21 22:59 06:59 14:59 Intake Total 500 1914 Output Total 1150 0 Balance -650 1914 Lab Results - Last 24 hrs: Laboratory Results - last 24 hr 08/27/21 08/27/21 08/27/21 Range/Units 06:05 06:05 11:08 WBC 5.93 (4.0-11.0) K/uL RBC 2.76 L (4.30-5.90) M/uL Hgb 7.6 L (12.0-16.0) g/dL Hct 23.8 L (36.0-46.0) % MCV 86.2 (80.0-98.0) fL MCH 27.5 (27.0-32.0) pg MCHC 31.9 (31.0-37.0) g/dL RDW Std Deviation 67.4 H (28.0-62.0) fl RDW Coeff of Shabbir 21 H (11.0-15.0) % Plt Count 194 (150-400) K/uL MPV 9.50 (7.40-12.00) fL Neut % (Auto) 65.9 (48.0-80.0) % Lymph % (Auto) 18.7 (16.0-40.0) % [place] % (Auto) 12.6 (0.0-15.0) % Eos % (Auto) 2.5 (0.0-7.0) % Baso % (Auto) 0.3 (0.0-1.5) % Neut # (Auto) 3.9 (1.4-5.7) K/uL Lymph # (Auto) 1.1 (0.6-2.4) K/uL [place] # (Auto) 0.8 (0.0-0.8) K/uL Eos # (Auto) 0.2 (0.0-0.7) K/uL Baso # (Auto) 0.0 (0.0-0.1) K/uL Nucleated RBC % 0.0 /100WBC Nucleated RBCs # 0 K/uL Sodium 147 H (136-145) mmol/L Potassium 3.9 (3.5-5.1) mmol/L Chloride 116 H (98-107) mmol/L Carbon Dioxide 19.2 L (21.0-32.0) mmol/L BUN 40 H (7.0-18.0) mg/dL Creatinine 3.1 H (0.6-1.0) mg/dL Est Cr Clr Drug Dosing 14.37 mL/min Estimated GFR (MDRD) 14.9 ml/min Glucose 93 (74-106) mg/dL Calcium 8.7 (8.5-10.1) mg/dL Phosphorus 3.2 (2.6-4.7) mg/dL Magnesium 1.9 (1.8-2.4) mg/dL Ur Random Creatinine 38.2 mg/dL Ur Random Sodium 102.0 (40.0-220.0) mmol/L Ur Random Potassium 13.3 mmol/L Ur Random Chloride 117 mmol/L STAR Results - Last 24 hrs: Microbiology 08/24/21 11:20 Aerobic Blood Culture - Preliminary Blood - Venous - Lab Draw NO GROWTH AFTER 3 DAYS Anaerobic Blood Culture - Final 08/24/21 12:13 Aerobic Blood Culture - Preliminary Blood - Venous NO GROWTH AFTER 3 DAYS Anaerobic Blood Culture - Final 08/26/21 21:00 Stool Occult Blood (STAR) - Final Stool / Feces Med Orders - Current: Current Medications Acetaminophen (Acetaminophen 325 Mg Tab) 650 mg PO Q4H PRN PRN Reason: Pain (Mild 1-3)/fever Last Admin: 08/27/21 08:44 Dose: 650 mg Documented by: Buspirone HCl (Buspirone 5 Mg Tab) 15 mg PO TID [facility] Last Admin: 08/27/21 05:55 Dose: 15 mg Documented by: Duloxetine HCl (Duloxetine 30 Mg Cap) 30 mg PO DAILY [facility] Last Admin: 08/27/21 08:45 Dose: 30 mg Documented by: Lactated Ringer's (Ringers, Lactated) 1,000 mls @ 125 mls/hr IV ASDIRECTED [facility] Last Admin: 08/27/21 03:30 Dose: 125 mls/hr Documented by: Pantoprazole Sodium 40 mg/ (Sodium Chloride) 10 mls @ 300 mls/hr IV Q12H [facility] Last Admin: 08/27/21 03:25 Dose: 300 mls/hr Documented by: Piperacillin Sod/Tazobactam (Sod 4.5 gm/ Sodium Chloride) 100 mls @ 200 mls/hr IV Q12H [facility] Last Admin: 08/27/21 05:53 Dose: 200 mls/hr Documented by: Lorazepam (Lorazepam 0.5 Mg Tab) 0.5 mg PO TID [facility] Last Admin: 08/27/21 05:55 Dose: 0.5 mg Documented by: Morphine Sulfate (Morphine 2 Mg/Ml Syringe) 1 mg IVPUSH Q4H PRN PRN Reason: Headache Ondansetron HCl (Ondansetron 4 Mg/2 Ml Sdv) 4 mg IVPUSH Q4H PRN PRN Reason: Nausea/Vomiting Last Admin: 08/25/21 11:51 Dose: 4 mg Documented by: Oxymetazoline HCl (Oxymetazoline 0.05% Nasal [place] 15 Ml Bottle) 2 ml BERNARDA BEDTIME [facility] Last Admin: 08/26/21 21:30 Dose: Not Given Documented by: Propranolol HCl (Propranolol 20 Mg Tab) 40 mg PO BID [facility] Last Admin: 08/27/21 08:44 Dose: 40 mg Documented by: Sumatriptan Succinate (Sumatriptan 6 Mg/0.5 Ml Sdv) 6 mg SUBCUT ONETIME PRN PRN Reason: headache Trazodone HCl (Trazodone 50 Mg Tab) 100 mg PO BEDTIME PRN PRN Reason: Sleep Last Admin: 08/24/21 21:10 Dose: 100 mg Documented by: Discontinued Medications Acetaminophen (Acetaminophen 500 Mg Tab) 1,000 mg PO ONETIME ONE Stop: 08/24/21 13:23 Last Admin: 08/24/21 13:54 Dose: 1,000 mg Documented by: Caffeine Citrate (Caffeine Citrated (For Neonates) 60 Mg/3 Ml) 20 mg PO ONETIME ONE Stop: 08/24/21 13:34 Last Admin: 08/24/21 13:55 Dose: 20 mg Documented by: Al Hydroxide/Mg Hydroxide 15 (ml/ Lidocaine HCl 5 ml) 0 ml PO ONETIME ONE Stop: 08/27/21 10:16 Sodium Chloride (Normal Saline) 1,000 mls @ 999 mls/hr IV BOLUS ONE Stop: 08/24/21 12:08 Last Admin: 08/24/21 11:16 Dose: 999 mls/hr Documented by: Sodium Chloride (Normal Saline) 1,000 mls @ 999 mls/hr IV STAT ONE Stop: 08/24/21 13:24 Last Admin: 08/24/21 12:57 Dose: 999 mls/hr Documented by: Piperacillin Sod/Tazobactam (Sod 3.375 gm/ Sodium Chloride) 50 mls @ 100 mls/hr IV ONETIME ONE Stop: 08/24/21 13:18 Last Admin: 08/24/21 13:10 Dose: 100 mls/hr Documented by: Vancomycin HCl 1 gm/ Sodium (Chloride) 250 mls @ 166 mls/hr IV ONETIME ONE Stop: 08/24/21 15:52 Last Admin: 08/24/21 14:42 Dose: 166 mls/hr Documented by: Lactated Ringer's (Ringers, Lactated) 1,000 mls @ 999 mls/hr IV BOLUS ONE Stop: 08/24/21 16:12 Last Admin: 08/24/21 15:36 Dose: 999 mls/hr Documented by: Iopamidol (Iopamidol 755 Mg/Ml 500 Ml Multipack Bottle) 75 ml IVPUSH ONETIME STA Stop: 08/24/21 13:19 Last Admin: 08/24/21 13:18 Dose: 75 ml Documented by: Lorazepam (Lorazepam 2 Mg/Ml Sdv) 0.5 mg IVPUSH Q12H [facility]ID Morphine Sulfate (Morphine 2 Mg/Ml Syringe) 0.5 mg IVPUSH ONETIME ONE Stop: 08/26/21 08:00 Last Admin: 08/26/21 08:10 Dose: 0.5 mg Documented by: Propranolol HCl (Propranolol 20 Mg Tab) 40 mg PO BID [facility]
[2021-08-27 13:01] VITALS: BP 149/79; PULSE 65
[2021-08-27] MEDS ORDERED: Loperamide 2 MG Cap PO ONE (13:11)
== END 2021-08-27 13:47 | disposition home or self-care (01) | DRG 720 ==
LOC: MW.ED 10:38 → MW.MS 14:38
PROVIDERS: ADMIT Student in an Organized Health Care Education/Training Program; ATTEND Student in an Organized Health Care Education/Training Program
DX: A41.9 Sepsis, unspecified organism (principal); N17.9 Acute kidney failure, unspecified; E86.0 Dehydration; F31.9 Bipolar disorder, unspecified; F41.9 Anxiety disorder, unspecified; G40.909 Epilepsy, unspecified, not intractable, without status epilepticus; F42.9 Obsessive-compulsive disorder, unspecified; K52.9 Noninfective gastroenteritis and colitis, unspecified; D64.9 Anemia, unspecified; Z20.822 Contact with and (suspected) exposure to COVID-19; E86.1 Hypovolemia; E87.5 Hyperkalemia; K21.9 Gastro-esophageal reflux disease without esophagitis; W18.30XA Fall on same level, unspecified, initial encounter; Y92.89 Other specified places as the place of occurrence of the external cause; Z87.440 Personal history of urinary (tract) infections; Z90.710 Acquired absence of both cervix and uterus; Z90.49 Acquired absence of other specified parts of digestive tract; Z98.890 Other specified postprocedural states; Z90.89 Acquired absence of other organs; Z90.722 Acquired absence of ovaries, bilateral
CPT/HCPCS: 0241U; 36415; 70450; 70450-26; 71045; 71045-26; 72170; 72170-26; 74177; 74177-26; 76705; 76705-26; 80048; 80053; 81003; 82272; 82436; 82570; 83605; 83690; 83735; 84100; 84133; 84300; 84484; 85014; 85018; 85025; 86850; 86900; 86901; 87040; 87045; 87046; 87324; 87328; 87329; 87449; 87899; 93005; 96365; 99285-25; A9270-GY; C9113; J0706; J2270; J2405; J2543; J3370; J7030; J7050; J7120; Q9967

== ENCOUNTER 2021-10-15 09:49 | Emergency (ER) | payer BC ==
[2021-10-15] MEDS ORDERED: Bacitracin Oint 1 GM U/D Packet TOP ONE (10:07)
--- NOTE | 2021-10-15 10:10 | EDM.PDOC ---
ED HPI GENERAL MEDICAL PROBLEM - General Chief Complaint: Upper Extremity Injury/Pain Stated Complaint: ELBOW PAIN FROM FALL RIGHT SIDE Time Seen by Provider: 10/15/21 10:04 Source of Information: Reports: Patient History Limitations: Reports: No Limitations - History of Present Illness INITIAL COMMENTS - FREE TEXT/NARRATIVE: HISTORY AND PHYSICAL: History of present illness: Patient is a 70-year-old female who presents to the emergency room with complaints of right elbow pain post fall. She states yesterday she had a mechanical fall where she tripped and hit her right elbow. She does have a small skin tear in which she had bandaged. She has increased pain with flexion and extension. Denies hitting her head or having any loss of consciousness. Denies any urinary or fecal incontinence. Denies any numbness, tingling, saddle paresthesias. Patient denies any fever, chills, headache, change in vision, syncope or near syncope. Denies any chest pain, back pain, shortness of breath or cough. Denies any abdominal pain, nausea, vomiting, diarrhea, constipation or dysuria. Has not noted any blood in urine or stool. Patient has been eating and drinking appropriately. No recent travel or sick contacts. Review of systems: As per history of present illness and below otherwise all systems reviewed and negative. Past medical history: As per history of present illness and as reviewed below otherwise noncontributory. Surgical history: As per history of present illness and as reviewed below otherwise noncontributory. Social history: See social history for further information Family history: As per history of present illness and as reviewed below otherwise noncontributory. Physical exam: General: Well developed and well nourished 70-year-old female. Alert and orientated x 3. Nontoxic in appearance and in no acute distress. Vital signs are stable and have been reviewed by me. Nursing notes were reviewed. HEENT: Atraumatic, normocephalic, pupils equal and reactive bilaterally, negative for conjunctival pallor or scleral icterus, mucous membranes moist, TMs normal bilaterally, throat clear, neck supple, nontender, trachea midline. No drooling or trismus noted. No meningeal signs. No hot potato voice noted. Lungs: Clear to auscultation bilaterally. No wheezes, rales, or rhonchi. Chest nontender. Normal work of breathing, no accessory muscles used. Heart: S1S2, regular rate and rhythm without overt murmur, gallops, or rubs. No JVD. No peripheral edema Abdomen: Soft, nondistended, nontender. Pelvis stable. Negative for masses or costovertebral tenderness. C-spine/Back: No pinpoint vertebral tenderness upon palpation. No crepitus, step-offs or obvious deformities. Patient is ambulatory into the emergency room without difficulty or deficit. Able to rock back on heels and walk on toes. Denies any urinary or fecal incontinence. Denies any numbness, tingling or saddle paresthesia. No concerns of serious infection, fracture or cord compress ion, or cauda equina syndrome. Deep tendon reflexes brisk bilaterally. Skin: Intact, warm, dry. No lesions or rashes noted. Hematologic: No petechiae or purpra. Mucosa appropriate color and normal nail bed color and refill. Extremities: Pain with palpation of the right elbow. Good flexion and extension although does cause increased pain. She is able to rotate at the wrist although this causes pain as well. Strong radial pulse. Cap refill less than 2 seconds. She moves all other extremities per self without difficulty or deficits. Neurovascular unremarkable. Neuro: Awake, alert, oriented. Cranial nerves II through XII unremarkable. Cerebellum unremarkable. Motor and sensory unremarkable throughout. Exam nonfocal. Psychiatric: Mood and affect are appropriate. Normal thought process. Answering questions appropriately. Please note that the patient was seen and evaluated during the 2019 SARS-CoV-2 novel coronavirus pandemic period. Community viral transmission is ongoing at time of this encounter and the emergency department is operating under pandemic response procedures. Medical Decision Making: Patient is a 70-year-old female who presents to the emergency room with complaints of right elbow pain after a fall yesterday. Head to toe exam was completed and she denies any other injury, trauma or pain other than the right elbow. She does have good flexion and extension of the elbow although has pain with palpation and movement. She does have a small skin tear which she had dressed with a nonstick dressing. Skin has mild redness surrounding the site although there is no fluctuance or concern for septic joint. Wound care will be provided and bacitracin nonstick dressing applied. X-ray shows no fracture or malalignment. Will place her on a short course of antibiotic to prevent any further concern for infection of the small skin tear. Will place in splint for comfort purposes. I have talked with the patient about today's findings, in addition to providing specific details for plan of care. Reassessment at the time of disposition demonstrates that the patient is in no acute distress. The patient is stable for discharge, counseling was provided and we discussed in great detail signs and symptoms that would prompt them to return to the Emergency Department. Medication, follow up and supportive care measures were reviewed and discussed. Voices understanding and is agreeable to plan of care. Denies any further questions or concerns at this time. Diagnostics: Elbow x-ray Therapeutics: Wound care, bacitracin, Keflex Prescription: Keflex Impression: Right elbow injury Plan: 1. You were evaluated today on an emergent basis. Your x-ray shows no fractures or dislocations. Rest, ice and elevate at able. Wear the sling for comfort. The abrasion/skin tear looks like it could start to be infected. keep the area clean and dry. Wash gently with mild soap and water twice daily. I did give a short course of antibiotic, take as directed. 2. You can alternate Tylenol and ibuprofen as needed for pain and fever management. 3. We encourage you to follow up with your primary care provider and/or recommended specialist in the next few days for re-evaluation and further care/management. 4. If your symptoms should worsen, new symptoms develop or any of the signs and symptoms we discussed should arise please return to the emergency room or call 911 (if needed). Definitive disposition and diagnosis as appropriate pending reevaluation and review of above. Right Elbow Pain Score (Numeric/FACES): 10 - Related Data Allergies Allergy/AdvReac Type Severity Reaction Status Date / Time haloperidol [From Haldol] Allergy seizures Verified 10/15/21 10:02 haloperidol lactate Allergy seizures Verified 10/15/21 10:02 [From Haldol] Home Meds: Home Meds Amitriptyline HCl 75 mg PO BEDTIME 08/24/21 [History] ClonazePAM [KlonoPIN] 1 mg PO BEDTIME 08/24/21 [History] DULoxetine [Cymbalta] 30 mg PO DAILY 08/24/21 [History] LORazepam [Ativan] 0.5 mg PO TID 08/24/21 [History] Oxymetazoline HCl [Afrin] 2 spray NS BEDTIME 08/24/21 [History] Propranolol [Inderal] 40 mg PO BID 08/24/21 [History] busPIRone [Buspar] 15 mg PO TID 08/24/21 [History] traZODone 100 mg PO BEDTIME PRN 08/24/21 [History] cephALEXin [Keflex] 500 mg PO BID 5 Days #10 cap 10/15/21 [Rx] Past Medical History HEENT History: Reports: Cataract, Other (See Below) Other HEENT History: wears glasses Cardiovascular History: Reports: None Respiratory History: Reports: None Gastrointestinal History: Reports: GERD Genitourinary History: Reports: UTI, Recurrent [employer]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: Musculoskeletal History: Reports: Other (See Below) Other Musculoskeletal History: left knee pain (DJD) Neurological History: Reports: Cerebral Aneurysms, Migraines, Seizure, Other (See Below) Other Neuro History: placement of coil for brain aneurysm Psychiatric History: Reports: Anxiety, Bipolar, Depression, OCD, Suicide Attempt Endocrine/Metabolic History: Reports: None Hematologic History: Reports: None Immunologic History: Reports: None Oncologic (Cancer) History: Reports: None Dermatologic History: Reports: None - Infectious Disease History Infectious Disease History: Reports: None - Past Surgical History Head Surgeries/Procedures: Reports: Other (See Below) HEENT Surgical History: Reports: Cataract Surgery, Tonsillectomy GI Surgical History: Reports: Appendectomy, Other (See Below) Other GI Surgeries/Procedures: hemorrhoidectomy Female Surgical History: Reports: Hysterectomy, Salpingo-Oophorectomy, Other (See Below) Other Female Surgeries/Procedures: cystocele repair, rectocele repair Social & Family History - Family History Family Medical History: No Pertinent Family History - Caffeine Use Caffeine Use: Reports: None Review of Systems - Review of Systems Review Of Systems: Comprehensive ROS is negative, except as noted in HPI. ED EXAM, GENERAL - Physical Exam Exam: See Below (See dictation) Course - Vital Signs Last Recorded V/S: Last Vital Signs Temp 97.6 F 10/15/21 10:01 Pulse 89 10/15/21 10:01 Resp 18 10/15/21 10:01 BP 120/66 10/15/21 10:01 Pulse Ox 98 10/15/21 10:01 - Orders/Labs/Meds Orders: Active Orders 24 hr Category Date Time Status Communication Order [RC] STAT Care 10/15/21 10:07 Active DME for Discharge [COMM] Stat Oth 10/15/21 11:24 Ordered Meds: Medications Discontinued Medications Generic Name Dose Route Start Last Admin Trade Name Maikel PRN Reason Stop Dose Admin Bacitracin 1 dose 10/15/21 10:07 10/15/21 11:09 Bacitracin Oint 1 Gm U/D Packet TOP 10/15/21 10:08 1 dose ONETIME ONE Administration Cephalexin 500 mg 10/15/21 11:10 Cephalexin 500 Mg Cap PO 10/15/21 11:11 ONETIME ONE Departure - Departure Time of Disposition: 11:22 Disposition: Home, Self-Care 01 Clinical Impression: Elbow injury Qualifiers: Encounter type: initial encounter Laterality: right Qualified Code(s): S59.901A - Unspecified injury of right elbow, initial encounter - Discharge Information Prescriptions: cephALEXin [Keflex] 500 mg PO BID 5 Days #10 cap Referrals: PCP,None [Primary Care Provider] - Forms: ED Department Discharge Additional Instructions: The following information is given to patients seen in the emergency department who are being discharged to home. This information is to outline your options for follow-up care. We provide all patients seen in our emergency department with a follow-up referral. The need for follow-up, as well as the timing and circumstances, are variable depending upon the specifics of your emergency department visit. If you don't have a primary care physician on staff, we will provide you with a referral. We always advise you to contact your personal physician following an emergency department visit to inform them of the circumstance of the visit and for follow-up with them and/or the need for any referrals to a consulting specialist. The emergency department will also refer you to a specialist when appropriate. This referral assures that you have the opportunity for follow-up care with a specialist. All of these measure are taken in an effort to provide you with o ptimal care, which includes your follow-up. Under all circumstances we always encourage you to contact your private physician who remains a resource for coordinating your care. When calling for follow-up care, please make the office aware that this follow-up is from your recent emergency room visit. If for any reason you are refused follow-up, please contact the [facility] Emergency Department at and asked to speak to the emergency department charge nurse. [facility] [address] [place] [address] [facility] [address] [place] [address] Thank you for choosing the [facility] emergency department in [place] for your medical needs today. It was a pleasure caring for you. Today you were seen in the emergency department for right elbow injury and abrasion Your prescription was electronically sent to: [facility] 1. You were evaluated today on an emergent basis. Your x-ray shows no fractures or dislocations. Rest, ice and elevate at able. Wear the sling for comfort. The abrasion/skin tear looks like it could start to be infected. keep the area clean and dry. Wash gently with mild soap and water twice daily. I did give a short course of antibiotic, take as directed. 2. You can alternate Tylenol and ibuprofen as needed for pain and fever management. 3. We encourage you to follow up with your primary care provider and/or recommended specialist in the next few days for re-evaluation and further care/management. 4. If your symptoms should worsen, new symptoms develop or any of the signs and symptoms we discussed should arise please return to the emergency room or call 911 (if needed). Sepsis Event Note (ED) - Focused Exam Vital Signs: Vital Signs Temp Pulse Resp BP Pulse Ox 10/15/21 10:01 97.6 F 89 18 120/66 98 - My Orders Last 24 Hours: My Active Orders 10/15/21 10:07 Communication Order [RC] STAT 10/15/21 11:24 DME for Discharge [COMM] Stat - Assessment/Plan Last 24 Hours: My Active Orders 10/15/21 10:07 Communication Order [RC] STAT 10/15/21 11:24 DME for Discharge [COMM] Stat
[2021-10-15] MEDS ORDERED: Cephalexin 500 MG Cap PO ONE (11:10)
--- NOTE | 2021-10-15 11:17 | CR ---
INDICATION: Fall. Elbow pain. TECHNIQUE: Right elbow, five views. COMPARISON: None FINDINGS: Bones: Alignment is normal. No fractures or bone lesions. There is suboptimal positioning of the elbow on the lateral projection. Joint spaces: Unremarkable. Soft tissues: Unremarkable. IMPRESSION: There is no acute fracture or malalignment. Dictated by Alex Preston MD @ 10/15/2021 11:15:32 AM (Electronically Signed)
[2021-10-15 12:59] VITALS: BP 127/63; PULSE 78
== END 2021-10-15 12:01 | disposition home or self-care (01) ==
LOC: MW.ED 09:49
DX: S59.901A Unspecified injury of right elbow, initial encounter (principal); Z88.5 Allergy status to narcotic agent; W01.198A Fall on same level from slipping, tripping and stumbling with subsequent striking against other object, initial encounter
CPT/HCPCS: 73080; 99283; A9270

== ENCOUNTER 2024-11-21 01:29 | Emergency (ER) | payer BC ==
[2024-11-21 03:26] LABS: BLOOD UREA NITROGEN,BUN 38 mg/dL (7.0-18.0); CALCIUM 8.6 mg/dL (8.5-10.1); CARBON DIOXIDE,CO2 23.3 mmol/L (21.0-32.0); CHLORIDE,CL 107 mmol/L (98-107); CREATININE 2.3 mg/dL (0.6-1.0); GLUCOSE RANDOM 132 mg/dL (74-106); POTASSIUM,K 4.2 mmol/L (3.5-5.1); SODIUM,NA 139 mmol/L (136-145)
[2024-11-21 03:34] LABS: ESTIMATED GFR 22 mL/min (>60)
[2024-11-21 03:46] LABS: BILIRUBIN,URINE NEGATIVE (NEGATIVE); COLOR,URINE ORANGE; GLUCOSE,URINE NEGATIVE (NEGATIVE); KETONES,URINE NEGATIVE (NEGATIVE); LEUKOCYTE ESTERASE,URINE MODERATE (NEGATIVE); NITRITE,URINE POSITIVE (NEGATIVE); OCCULT BLOOD,URINE TRACE-INTACT (NEGATIVE); PROTEIN,URINE NEGATIVE (NEGATIVE)
[2024-11-21 03:54] LABS: APPEARANCE,URINE SLT CLOUDY
[2024-11-21 03:55] LABS: BACTERIA,URINE 1+ (NEGATIVE); EPITHELIAL CELLS,URINE RARE (NONE-FEW); RBC,URINE 0-2 (0-2/HPF); WBC,URINE 14-16 (0-5/HPF)
[2024-11-21 05:04] VITALS: BP 94/52; PULSE 88
== END 2024-11-21 04:51 | disposition home or self-care (01) ==
LOC: MW.ED 01:29
DX: M62.838 Other muscle spasm (principal); N18.4 Chronic kidney disease, stage 4 (severe); N39.0 Urinary tract infection, site not specified; Z88.8 Allergy status to other drugs, medicaments and biological substances; Z79.899 Other long term (current) drug therapy; Z90.49 Acquired absence of other specified parts of digestive tract; Z90.710 Acquired absence of both cervix and uterus
CPT/HCPCS: 36415; 80048; 81001; 99284